=== PATIENT | male | born 1970 | race Caucasian/White ===

== ENCOUNTER 2020-07-07 15:24 | Inpatient (IN) | payer OTHER ==
[2020-07-07] MEDS ORDERED: LIDO 2%/EPI 1:200000 PRESRVFRE (20 ML SDVIAL) ONE (15:50)
[2020-07-07] MEDS ORDERED: LIDOCAINE 1%/EPI 1:100000 (20 ML MULTI DOSE VIAL) IJ ONE (15:52)
--- NOTE | 2020-07-07 16:22 | PDOC ---
History of Present Illness - General Chief Complaint: Abscess Boil Stated Complaint: ABSCESS Time Seen by Provider: 07/07/20 15:27 - History of Present Illness Initial Comments: 50 YOM h/o HIV presents for abscess on right buttock. Patient reports that since 4 days prior to arrival he has had a lesion in his right buttock which grown in siize. The lesion causes him pain when he sits but is not painful otherwise. He reports the lesion began to drain fluid this morning and he decided to visit the ER for drainage. He also reports that 4-5 months ago he was diagnosed with HIV. He is uncertain of his CD4 count or viral load and is not currently taking any medications to treat his HIV. He denies fevers, chills, N/V/D, chest pain, or shortness of breath. Past History - Medical History Allergies/Adverse Reactions: Allergies Allergy/AdvReac Type Severity Reaction Status Date / Time No Known Allergies Allergy Verified 07/07/20 15:25 Home Medications: Ambulatory Orders NK [No Known Home Medication] 07/07/20 CVA: No COPD: No - Psycho-Social/Smoking History Smoking History: Never smoked - Substance Abuse Hx (Audit-C & DAST Scrn) How often the patient has a drink containing alcohol: Never Score: In Men: 4 or > Positive; In Women: 3 or > Positive: 0 Screen Result (Pos requires Nsg. Audit-10AR): Negative In the last yr the pt used illegal drug/Rx for NonMed reason: No Score: Yes response is considered Positive: 0 Screen Result (Positive result requires Nsg. DAST-10): Negative Review of Systems - Review of Systems Constitutional: Yes: See HPI HEENTM: Yes: See HPI Respiratory: Yes: See HPI Cardiac (ROS): Yes: See HPI ABD/GI: Yes: See HPI : Yes: See HPI Musculoskeletal: Yes: See HPI Integumentary: Yes: See HPI Neurological: Yes: See HPI Endocrine: Yes: See HPI Hematologic/Lymphatic: Yes: See HPI *Physical Exam - Vital Signs Last Vital Signs Temp Pulse Resp BP Pulse Ox 99.2 F 123 H 17 156/107 H 100 07/07/20 15:25 07/07/20 15:25 07/07/20 15:25 07/07/20 15:25 07/07/20 15:25 - Physical Exam General Appearance: Yes: Nourished, Appropriately Dressed HEENT: positive: EOMI, JOSE, Normal ENT Inspection, Normal Voice Neck: positive: Trachea midline, Normal Thyroid Respiratory/Chest: positive: Lungs Clear, Normal Breath Sounds Cardiovascular: positive: Regular Rhythm, Regular Rate, S1, S2, Tachycardia Gastrointestinal/Abdominal: positive: Flat, Soft Rectal Exam: positive: other (patient has 3-4 CM indurated mass with central fluctuance and ring of surrounding warmth and erythema which measure to 11x12 cm. Rectal exam reveal no induration or tracking of lesion into gluteal cleft or anus/rectum. ) ED Treatment Course - LABORATORY CBC & Chemistry Diagram: 07/07/20 16:44 07/07/20 15:57 - Medications Given in the ED: ED Medications Discontinued Medications Generic Name Dose Route Start Last Admin Trade Name Freq PRN Reason Stop Dose Admin Lidocaine/Epinephrine 10 ml 07/07/20 15:52 07/07/20 16:01 Xylocaine 1%-Epi 1:100,000 IJ 07/07/20 15:53 10 ml ONCE ONE Administration Medical Decision Making - Medical Decision Making 52 YOM h/o HIV not on antiretroviral medication presents with 4cm indurated abscess with fluctuance -Pt is tachycardic to 120s and rectal temp of 101.1 -Will do septic work up, I and D of abscess and admit -Pt given IV vancomycin and zosyn and Tylenol -I and D performed, wound packed and dressed -Pt admitted to med surg Discharge - Discharge Information Problems reviewed: Yes Clinical Impression/Diagnosis: Abscess, HIV disease Condition: Stable - Admission Yes - Follow up/Referral - Patient Discharge Instructions - Post Discharge Activity
[2020-07-07] MEDS ORDERED: ACETAMINOPHEN 1000 MG/100 ML VIAL (NON FORMULARY) IVPB ONE (16:27)
[2020-07-07] MEDS ORDERED: ACETAMINOPHEN INJECTION 100 ML IVPB ONE (16:45)
[2020-07-07 16:52] LABS: BASO % 0.5 % (0-2.0); EOS % 10.6 % (0-4.5); HEMATOCRIT 42.6 % (35.4-49); HEMOGLOBIN 14.3 GM/dl (11.7-16.9); MCH 30.5 pg (25.7-33.7); MCHC 33.6 g/dl (32.0-35.9); MEAN CELL VOLUME 90.6 fl (80-96); MEAN PLT VOLUME 6.9 fl (7.5-11.1); MONO % 6.9 % (3.8-10.2); PLATELET COUNT 277 K/MM3 (134-434); RDW 12.2 % (11.9-15.9); WHITE BLOOD COUNT 9.6 K/mm3 (4.0-10.8)
[2020-07-07 17:10] LABS: ALBUMIN 4.2 g/dl (3.4-5.0); BILIRUBIN,TOTAL 0.7 mg/dl (0.2-1); CALCIUM 8.6 mg/dl (8.5-10); CREATININE 0.9 mg/dl (0.55-1.3); POTASSIUM 3.6 mmol/L (3.5-5.1); TOT PROT 7.8 g/dl (6.4-8.2)
[2020-07-07] MEDS ORDERED: VANCOMYCIN 1 GM in D5W (PRE-DOCKED) 1,000 MG/250 ML IVPB ONE (17:24)
[2020-07-07] MEDS ORDERED: PIPERACILLIN/TAZOB 3.375 GM 3.375 GM in DEXTROSE 5%-WATER - 50 ML IVPB ONE (17:24)
[2020-07-07 17:27] LABS: ACTIVATED PTT 28.8 SECONDS (25.2-36.5); PROTHROMBIN TIME (PATIENT) 14.3 SEC (10.2-13.0)
[2020-07-07 17:28] LABS: INR 1.32 (0.82-1.09)
[2020-07-07] MEDS ORDERED: PIPERACILLIN/TAZOBACTAM 3.375 GM VIAL IVPB ONE (17:55)
--- NOTE | 2020-07-07 18:18 | PDOC ---
Attending Attestation - Resident Resident Name: Matheus Mckenzie - ED Attending Attestation I have performed the following: I have examined & evaluated the patient, The case was reviewed & discussed with the resident, I agree w/resident's findings & plan, Exceptions are as noted - HPI HPI: 07/07/20 18:15 50 years old with past medical history significant for HIV diagnosed approximately 1-1/2 years ago but patient has not started treatment. Presents to the ED with abscess to right buttock for several days. Denies fever chills chest pain shortness of breath nausea vomiting diarrhea. - Physicial Exam PE: 07/07/20 18:33 Vitals: Triage Vital signs reviewed General Appearance: No acute distress, well nourished well developed, Head: Atraumatic, Cardiac: Regular rate and rhythym, no murmurs, no rubs, no gallops, Lungs: Clear to auscultation bilateral, good air movement bilaterally, Abdomen: Soft, non distended, normal bowel sounds, non tender to palpation Extremities: Full range of motion to all extremities, no cyanosis, clubbing, or edema Skin: Warm and dry, no rashes or lesions, no rash, no petechiae Neuro: AOX3; cranial Nerves 2-12 grossly intact, strength intact to all extremities, sensation intact to all extremities, gait normal Psych: Normal mood, normal affect - Medical Decision Making 07/07/20 19:28 50 years old with untreated HIV. Unknown viral status Presents with buttock abscess; incised and drained with surrounding cellulitis. Packed. Recomend packing change in 2 days Given fever of 101 tachycardia untreated HIV and cellulitis decision made to admit for broad-spectrum antibiotics infectious disease consultation We will obtain CAT scan to rule out deep infection although low suspicion given no rectal tenderness or fluctuance on examination Discharge - Discharge Information Problems reviewed: Yes Clinical Impression/Diagnosis: Abscess, HIV disease Condition: Stable - Follow up/Referral - Patient Discharge Instructions - Post Discharge Activity Procedure Note Procedure: Patient verbally consented for incision and drainage of buttock abscess Using universal sterile precautions right buttock abscess prepped and draped anesthetized with 2% lidocaine with epi. 1.5 cm decision made loculations broken up using Consuelo clamp irrigated thoroughly with 200 cc normal saline approximately 10 cc pus expressed Packed with sterile packing Patient tolerated procedure well
[2020-07-07] MEDS ORDERED: VANCOMYCIN 1,000 MG VIAL (RESTRICTED TO ID ONLY) ONE (18:21)
[2020-07-07 20:15] VITALS: BMI 34.6
--- NOTE | 2020-07-07 20:22 | HP ---
CHIEF COMPLAINT: Buttock Abscess PCP: HISTORY OF PRESENT ILLNESS: This is a 50 y/o male with a significant medical history of HIV (no HAART compliant) unknown CD4 count and Viral load, HTN (non-complaint). Who presents to the ED with pain, swelling and drainage from a right buttock abscess. Patient reports having a small pimple to his right buttock 3-4 days ago, which he placed warm compresses on to bring to a head. Today he had increased pain when sitting and felt fluid draining from it. Patient reports feeling warm and having chills today. Patient denies cough, SOB, ACOSTA, dizziness, CP, palpitations, AP, N/V/D, constipation. Patient denies sick contacts or recent travel. Patient reports being in a monogamous relationship with his partner at present. He denies penile discharge or STIs. Patient denies sick contacts or recent travel. ER course was notable for: (1) Pelvis CT- findings consistent with diffuse cellulitis, with fluid collection at the right posteriomedial subcutaneous fat of the lower pelvis, at which abscess formation cannot be excluded. 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, Practice Architect Facility Allergies No Known Allergies Allergy (Verified 07/07/20 15:25) HOME MEDICATIONS: Home Medications Medication Instructions Recorded NK [No Known Home Medication] 07/07/20 REVIEW OF SYSTEMS CONSTITUTIONAL: fever, chills Absent: diaphoresis, generalized weakness, malaise, loss of appetite, weight change HEENT: Absent: rhinorrhea, nasal congestion, throat pain, throat swelling, difficulty swallowing, mouth swelling, ear pain, eye pain, visual changes CARDIOVASCULAR: Absent: chest pain, syncope, palpitations, irregular heart rate, lightheadedness, peripheral edema RESPIRATORY: Absent: cough, shortness of breath, dyspnea with exertion, orthopnea, wheezing, stridor, hemoptysis GASTROINTESTINAL: Absent: abdominal pain, abdominal distension, nausea, vomiting, diarrhea, constipation, melena, hematochezia GENITOURINARY: Absent: dysuria, frequency, urgency, hesitancy, hematuria, flank pain, genital pain MUSCULOSKELETAL: Absent: myalgia, arthralgia, joint swelling, back pain, neck pain SKIN: Right Buttock Abscess, erythema Absent: rash, itching, pallor HEMATOLOGIC/IMMUNOLOGIC: Absent: easy bleeding, easy bruising, lymphadenopathy, frequent infections ENDOCRINE: Absent: unexplained weight gain, unexplained weight loss, heat intolerance, cold intolerance NEUROLOGIC: Absent: headache, focal weakness or paresthesias, dizziness, unsteady gait, seizure, mental status changes, bladder or bowel incontinence PSYCHIATRIC: Absent: anxiety, depression, suicidal or homicidal ideation, hallucinations. PHYSICAL EXAMINATION Vital Signs - 24 hr 07/07/20 07/07/20 07/07/20 15:25 16:25 19:04 Temperature 99.2 F 101.2 F H 99.3 F Pulse Rate 123 H Pulse Rate [ 122 H Left] Respiratory 17 18 Rate Blood Pressure 156/107 H Blood Pressure 155/110 H [Right Arm] O2 Sat by Pulse 100 97 Oximetry (%) 07/07/20 19:56 Temperature 99.2 F Pulse Rate 117 H Pulse Rate [ Left] Respiratory 18 Rate Blood Pressure 143/97 Blood Pressure [Right Arm] O2 Sat by Pulse 99 Oximetry (%) GENERAL: Awake, alert, and fully oriented, in no acute distress. HEAD: Normal with no signs of trauma. EYES: Pupils equal, round and reactive to light, extraocular movements intact, sclera anicteric, conjunctiva clear. No lid lag. EARS, NOSE, THROAT: Ears normal, nares patent, oropharynx clear without exudates. Moist mucous membranes. NECK: Normal range of motion, supple without lymphadenopathy, JVD, or masses. LUNGS: Breath sounds equal, clear to auscultation bilaterally. No wheezes, and no crackles. No accessory muscle use. HEART: Regular rate and rhythm, normal S1 and S2 without murmur, rub or gallop. ABDOMEN: Soft, nontender, not distended, normoactive bowel sounds, no guarding, no rebound, no masses. No hepatomegaly or splenomegaly. BUTTOCKS: Right buttock induration with fluctuance, erythema, warmth, dressing with packing, TTP MUSCULOSKELETAL: Normal range of motion at all joints. No bony deformities or tenderness. No CVA tenderness. UPPER EXTREMITIES: 2+ pulses, warm, well-perfused. No cyanosis. No clubbing. No peripheral edema. LOWER EXTREMITIES: 2+ pulses, warm, well-perfused. No calf tenderness. No peripheral edema. NEUROLOGICAL: Cranial nerves II-XII intact. Normal speech. Normal gait. PSYCHIATRIC: Cooperative. Good eye contact. Appropriate mood and affect. SKIN: Erythema, warmth, induration to right medial buttocks. Warm, dry, normal turgor, no rashes noted, normal capillary refill. Laboratory Results - last 24 hr 07/07/20 07/07/20 07/07/20 15:57 16:44 16:44 WBC 9.6 RBC 4.70 Hgb 14.3 Hct 42.6 MCV 90.6 MCH 30.5 MCHC 33.6 RDW 12.2 Plt Count 277 MPV 6.9 L Absolute Neuts (auto) 5.8 Neutrophils % 60.0 Lymphocytes % 22.0 Monocytes % 6.9 Eosinophils % 10.6 H Basophils % 0.5 PT with INR 14.3 H INR 1.32 H PTT (Actin FS) 28.8 Sodium 134 L Potassium 3.6 Chloride 103 Carbon Dioxide 24 Anion Gap 7 L BUN 13.0 Creatinine 0.9 Est GFR (CKD-EPI)AfAm 113.41 Est GFR (CKD-EPI)NonAf 97.85 Random Glucose 98 Lactic Acid Calcium 8.6 Total Bilirubin 0.7 AST 19 ALT 19 Alkaline Phosphatase 87 Total Protein 7.8 Albumin 4.2 Urine Color Urine Appearance Urine pH Urine Protein Urine Glucose (UA) Urine Ketones Urine Blood Urine Nitrite Urine Bilirubin Urine Urobilinogen Ur Leukocyte Esterase 07/07/20 07/07/20 16:44 16:54 WBC RBC Hgb Hct MCV MCH MCHC RDW Plt Count MPV Absolute Neuts (auto) Neutrophils % Lymphocytes % Monocytes % Eosinophils % Basophils % PT with INR INR PTT (Actin FS) Sodium Potassium Chloride Carbon Dioxide Anion Gap BUN Creatinine Est GFR (CKD-EPI)AfAm Est GFR (CKD-EPI)NonAf Random Glucose Lactic Acid 1.5 Calcium Total Bilirubin AST ALT Alkaline Phosphatase Total Protein Albumin Urine Color Yellow Urine Appearance Clear Urine pH 5.5 Urine Protein Negative Urine Glucose (UA) Negative Urine Ketones Trace Urine Blood Negative Urine Nitrite Negative Urine Bilirubin Negative Urine Urobilinogen 0.2 Ur Leukocyte Esterase Negative ASSESSMENT/PLAN: This is a 50 y/o male with a PMHx of HIV (non HAART complaint), HTN (non- complaint). Admitted to Telemetry for Uncontrolled HTN, Tachycardia, Sepsis, Cellulitis for further evaluation of their emergent condition. Plan: See Problem List FEN PO Fluids as tolerated Replete lytes prn Low Na Diet DVT ppx OOB SCDs Lovenox SQ Dispo: Requires Inpatient Care Family Medical History Family History: As Documented Family Hx Coronary Artery Disease: Mother (s/p Stents) Family Hx Respiratory Disorders: Father (Emphysema- ) Problem List - Problem (1) Sepsis Assessment/Plan: Likely secondary to Gluteal Abscess Pelvis CT image, report reviewed- findings consistent with diffuse cellulitis, with fluid collection at the right posteriomedial subcutaneous fat of the lower pelvis, at which abscess formation cannot be excluded. Blood Cultures-pending Sepsis Criteria Met: T 101.2, P 123 Vancomycin, Zosyn given in ED for broad spectrum coverage, will continue Appreciate ID consult Tylenol prn Monitor vitals Monitor CBC, CMP Code(s): A41.9 - SEPSIS, UNSPECIFIED ORGANISM (2) Abscess Assessment/Plan: See above Code(s): L02.91 - CUTANEOUS ABSCESS, UNSPECIFIED (3) Uncontrolled hypertension Assessment/Plan: Likely secondary to Non-Compliance Patient reports not taking his HCTZ dosage unknown for several yrs Appreciate Cardiology consult Will initiate Amlodipine Monitor BP Renal US Monitor CMP Code(s): I10 - ESSENTIAL (PRIMARY) HYPERTENSION (4) Tachycardia Assessment/Plan: Likely due to Sepsis Continue cardiac monitoring Appreciate Cardiology consult Serial Enzymes EKG-reviewed Code(s): R00.0 - TACHYCARDIA, UNSPECIFIED (5) HIV disease Assessment/Plan: Not on HAART Therapy secondary to non-compliance Patient has not been in treatment since diagnosis 1.5 yrs ago Appreciate ID consult CD3/4/8-pending Monitor vitals Code(s): B20 - HUMAN IMMUNODEFICIENCY VIRUS [HIV] DISEASE (6) Encounter for screening laboratory testing for COVID-19 virus Assessment/Plan: Low Risk COVID PCR-pending Isolation Precautions Code(s): Z11.59 - ENCOUNTER FOR SCREENING FOR OTHER VIRAL DISEASES Visit type - Emergency Visit Emergency Visit: Yes ED Registration Date: 07/07/20 Care time: The patient presented to the Emergency Department on the above date and was hospitalized for further evaluation of their emergent condition. - New Patient This patient is new to me today: Yes Date on this admission: 07/07/20 - Critical Care Critical Care patient: No
[2020-07-07] MEDS ORDERED: ACETAMINOPHEN 325 MG TABLET (FP) PO PRN (23:00)
[2020-07-08] MEDS ORDERED: DEXTROSE 5%-WATER - 50 ML IVPB ONE ×3 (01:33→17:25)
[2020-07-08] MEDS ORDERED: PIPERACILLIN/TAZOBACTAM 3.375 GM VIAL IVPB ONE ×3 (01:33→17:25)
[2020-07-08] MEDS: PIPERACILLIN/TAZOB 3.375 GM 3.375 GM in DEXTROSE 5%-WATER - 50 ML IVPB SCH ×3 (01:39→17:40)
[2020-07-08 02:37] LABS: COCAINE, UR NEGATIVE ng/ml (CUTOFF=300); METHADONE, UR NEGATIVE ng/ml (CUTOFF=300); OPIATES, URI NEGATIVE ng/ml (CUTOFF=300); PHENCYCLIDINE,URINE NEGATIVE ng/ml (CUTOFF=25); URINE AMPHETAMINES NEGATIVE ng/ml (CUTOFF=500); URINE BARBITURATES NEGATIVE ng/ml (CUTOFF=200); URINE BENZODIAZEPINES NEGATIVE ng/ml (CUTOFF=200)
[2020-07-08 05:31] LABS: OSMOLALITY,SERUM 294 mosm/kg (278-305)
--- NOTE | 2020-07-08 07:54 | CON.CARD ---
Consult Consult Specialty:: cardio - History of Present Illness Chief Complaint: buttock abscess History of Present Illness: 50 M here with R buttock abscess +HIV, not on treatment sec to non-adherence known h/o HTN, not taking rx'd meds (HCTZ) bp initially 150s/100s now controlled was nervous in ER thinks this may have raised his bp felt head pressure when first dx'd hi bp. never feels it so stopped hctz, doesn't check bp denies cp, sob, presyncope labs unremarkable - Smoking History Smoking history: Never smoked Have you smoked in the past 12 months: Yes Aproximately how many cigarettes per day: 15 Home Medications - Allergies Allergies/Adverse Reactions: Allergies Allergy/AdvReac Type Severity Reaction Status Date / Time No Known Allergies Allergy Verified 07/07/20 15:25 - Home Medications Home Medications: Ambulatory Orders NK [No Known Home Medication] 07/07/20 Family Medical History Family History: Denies Family Hx Coronary Artery Disease: Mother (s/p Stents) Family Hx Respiratory Disorders: Father (Emphysema- ) Review of Systems - Review of Systems Constitutional: denies: Chills, Fever Eyes: denies: Eye Pain HENT: denies: Nasal Congestion Neck: denies: Stiffness Cardiovascular: denies: Palpitations Respiratory: denies: Orthopnea, PND Gastrointestinal: denies: Diarrhea, Rectal Bleeding Genitourinary: denies: Burning, Hematuria Musculoskeletal: denies: Muscle Pain Integumentary: denies: Rash Neurological: denies: Numbness, Seizure, Syncope Endocrine: denies: Excessive Sweating Hematology/Lymphatic: denies: Excessive Bleeding Vital Signs: Vital Signs Temperature 98.5 F 07/08/20 04:00 Pulse Rate 88 07/08/20 04:00 Respiratory Rate 18 07/08/20 04:00 Blood Pressure 133/77 07/08/20 04:00 O2 Sat by Pulse Oximetry (%) 99 07/08/20 04:00 Constitutional: Yes: Well Nourished, No Distress Eyes: No: Sclera Icterus HENT: No: Nasal Congestion Neck: No: Decreased ROM Respiratory: Yes: CTA Bilaterally. No: Accessory Muscle Use Gastrointestinal: Yes: Normal Bowel Sounds. No: Distention, Hepatomegaly, Palpable Mass, Tenderness Cardiovascular: Yes: Regular Rate and Rhythm JVD: No Carotid Bruit: No PMI: Non-Displaced Heart Sounds: Yes: S1, S2. No: Gallop Murmur: No: Systolic Murmur, Diastolic Murmur Musculoskeletal: Yes: Other (No kyphosis) Extremities: No: Cool, Cyanosis Edema: No Peripheral Pulses: 2+ Left Carotid, 2+ Right Carotid, 2+ Left Doralis Pedis, 2+ Right Dorsalis Pedis Integumentary: No: Jaundice Neurological: Yes: Alert, Oriented (x3) Psychiatric: No: Agitated - Other Data Labs, Other Data: CBC, BMP 07/07/20 16:44 07/07/20 15:57 INR, PTT INR 1.32 (0.82-1.09) H 07/07/20 16:44 Troponin, BNP 07/08/20 00:00 Troponin I < 0.02 Troponin, BNP 07/08/20 00:00 Troponin I < 0.02 Assessment/Plan CXR: clear lungs/pleura ECG: sinus tach, no ST-T abn tele: sinus with sinus tach gluteal abscess: -per hospitalist, ID HTN: -elevated initially, came down on its own -hold meds for now while observe bp trend, in light of active infection sinus tach: -sec to infection vs anxiety -no tx or further w/u necessary D/C TELEMETRY
[2020-07-08 08:30] LABS: BASO % 0.2 % (0-2.0); EOS % 19.1 % (0-4.5); HEMATOCRIT 39.4 % (35.4-49); HEMOGLOBIN 13.3 GM/dl (11.7-16.9); LYMPH % 24.4 % (8-40); MCH 30.4 pg (25.7-33.7); MCHC 33.7 g/dl (32.0-35.9); MEAN CELL VOLUME 90.2 fl (80-96); MEAN PLT VOLUME 7.2 fl (7.5-11.1); MONO % 7.4 % (3.8-10.2); NEUT % 48.9 % (42.8-82.8); PLATELET COUNT 246 K/MM3 (134-434); RBC 4.37 M/mm3 (4.00-5.60); RDW 11.8 % (11.9-15.9); WHITE BLOOD COUNT 5.5 K/mm3 (4.0-10.8)
[2020-07-08 09:19] LABS: ALBUMIN 3.7 g/dl (3.4-5.0); BILIRUBIN,TOTAL 0.9 mg/dl (0.2-1); CALCIUM 8.6 mg/dl (8.5-10); CREATININE 0.9 mg/dl (0.55-1.3); MAGNESIUM 2.2 mg/dL (1.8-2.4); POTASSIUM 3.9 mmol/L (3.5-5.1)
[2020-07-08] MEDS: ENOXAPARIN NA (PORCINE) 40 MG/0.4 ML DISP.SYRIN SQ SCH (09:39)
[2020-07-08] MEDS ORDERED: VANCOMYCIN 1,250 MG in DEXTROSE 5%-WATER - 250 ML IVPB SCH (10:00)
[2020-07-08 10:18] LABS: ERYTHROCYTE SEDIMENTATION RATE 18 mm/hr (0-20)
[2020-07-08] MEDS: VANCOMYCIN 1,250 MG in DEXTROSE 5%-WATER - 250 ML IVPB SCH ×2 (13:14→21:14)
--- NOTE | 2020-07-08 15:40 | PN ---
Progress Note, Physician Chief Complaint: right glutteal abscess History of Present Illness: 24HR events: -started on vanco/zosyn for right glut abscess after I & D in ED -tachycardia improving HPI: 50 y/o male with a significant medical history of HIV (no HAART compliant) unknown CD4 count and Viral load, HTN (non-complaint). Who presents to the ED with pain, swelling and drainage from a right buttock abscess. Patient reports having a small pimple to his right buttock 3-4 days ago, which he placed warm compresses on to bring to a head. Today he had increased pain when sitting and felt fluid draining from it. Patient reports feeling warm and having chills today. Patient denies cough, SOB, ACOSTA, dizziness, CP, palpitations, AP, N/V/D, constipation. Patient denies sick contacts or recent travel. Patient reports being in a monogamous relationship with his partner at present. He denies penile discharge or STIs. Patient denies sick contacts or recent travel. ER course was notable for: (1) Pelvis CT- findings consistent with diffuse cellulitis, with fluid collection at the right posteriomedial subcutaneous fat of the lower pelvis, at which abscess formation cannot be excluded. (2) Vancomycin, Zosyn given (3) T Max 101.2 (4) BP 156/107~ 155/110 (5) HR- 123~117 - Current Medication List Current Medications: Active Medications Acetaminophen (Tylenol -) 650 mg PO Q6H PRN PRN Reason: FEVER Enoxaparin Sodium (Lovenox -) 40 mg SQ DAILY CINDY Last Admin: 07/08/20 09:39 Dose: Not Given Documented by: Piperacillin Sod/Tazobactam (Sod 3.375 gm/ Dextrose) 50 mls @ 100 mls/hr IVPB Q8H-IV CINDY; Protocol Vancomycin HCl 1,250 mg/ (Dextrose) 250 mls @ 166.667 mls/hr IVPB BID CINDY; Protocol Last Admin: 07/08/20 13:14 Dose: 166.667 mls/hr Documented by: - Objective Vital Signs: Vital Signs Temperature 98.2 F 07/08/20 14:00 Pulse Rate 93 H 07/08/20 14:00 Respiratory Rate 18 07/08/20 14:00 Blood Pressure 150/94 07/08/20 14:00 O2 Sat by Pulse Oximetry (%) 97 07/08/20 14:00 Constitutional: Yes: Well Nourished, No Distress, Calm Eyes: Yes: Conjunctiva Clear HENT: Yes: Atraumatic, Normocephalic Neck: Yes: Supple, Trachea Midline Cardiovascular: Yes: Regular Rate and Rhythm Respiratory: Yes: Regular, CTA Bilaterally Gastrointestinal: Yes: Normal Bowel Sounds, Soft, Abdomen, Obese ...Rectal Exam: Yes: Other (right glut w/ open wound which is packed, + circumf erential erythema, scant blood drainage) Musculoskeletal: Yes: WNL Extremities: Yes: WNL Edema: No Peripheral Pulses WNL: Yes Peripheral Pulses: Left Radial: 2+, Right Radial: 2+, Left Doralis Pedis: 2+, Right Dorsalis Pedis: 2+ Integumentary: Yes: WNL Wound/Incision: Yes: Draining, Reddened, Unapproximated Neurological: Yes: Alert, Oriented, Cran Nerves II-XII Intact ...Motor Strength: WNL Psychiatric: Yes: Alert Labs: CBC, BMP 07/08/20 08:17 07/08/20 06:00 INR, PTT INR 1.32 (0.82-1.09) H 07/07/20 16:44 Problem List - Problems (1) Prophylactic measure Assessment/Plan: lovenox SC daily OOB to chair Code(s): Z29.9 - ENCOUNTER FOR PROPHYLACTIC MEASURES, UNSPECIFIED (2) Abscess Assessment/Plan: c/w vanco/Zosyn ID consulted Trend temp curve Tylenol PRN pain WBC count normal Twice daily wound care wound culture sent today (07/08)- follow up final report blood culture pending Code(s): L02.91 - CUTANEOUS ABSCESS, UNSPECIFIED (3) Encounter for screening laboratory testing for COVID-19 virus Assessment/Plan: COVID screen pending- isolation/droplet precaution until result finalized Code(s): Z11.59 - ENCOUNTER FOR SCREENING FOR OTHER VIRAL DISEASES (4) HIV disease Assessment/Plan: CD 4 count pending pt amenable to establishing care at [facility], he would like to start treatment for HIV disease - Code(s): B20 - HUMAN IMMUNODEFICIENCY VIRUS [HIV] DISEASE (5) Uncontrolled hypertension Assessment/Plan: BP elevated in ED and during hospital stay -start hyzaar 50/12.5mg once daily cardiac diet d/c telemetry cards evaluated pt and signed off Code(s): I10 - ESSENTIAL (PRIMARY) HYPERTENSION Impression/Plan Impression/Plan: DISPO: will continue IV abx for another 24hrs, if he remains hemodynamically stable could be transitioned to oral abx and discharged Code status: Full code Visit type - Emergency Visit Emergency Visit: Yes ED Registration Date: 07/07/20 Care time: The patient presented to the Emergency Department on the above date and was hospitalized for further evaluation of their emergent condition. - New Patient This patient is new to me today: Yes Date on this admission: 07/08/20 - Critical Care Critical Care patient: No - Discharge Referral Referred to [facility] Med P.C.: Yes
[2020-07-08] MEDS ORDERED: LOSARTAN 50MG/HCTZ 12.5MG 1 TAB (FP) PO SCH (15:45)
[2020-07-09] MEDS ORDERED: PIPERACILLIN/TAZOBACTAM 3.375 GM VIAL IVPB ONE ×3 (01:19→18:13)
[2020-07-09] MEDS ORDERED: DEXTROSE 5%-WATER - 50 ML IVPB ONE ×3 (01:19→18:13)
[2020-07-09] MEDS: PIPERACILLIN/TAZOB 3.375 GM 3.375 GM in DEXTROSE 5%-WATER - 50 ML IVPB SCH ×3 (01:50→18:26)
[2020-07-09 08:48] LABS: ALBUMIN 3.8 g/dl (3.4-5.0); BILIRUBIN,TOTAL 0.7 mg/dl (0.2-1); CALCIUM 8.8 mg/dl (8.5-10); CREATININE 0.8 mg/dl (0.55-1.3); HEMATOCRIT 40.6 % (35.4-49); HEMOGLOBIN 13.5 GM/dl (11.7-16.9); MAGNESIUM 2.1 mg/dL (1.8-2.4); MCHC 33.3 g/dl (32.0-35.9); MEAN PLT VOLUME 6.7 fl (7.5-11.1); PLATELET COUNT 257 K/MM3 (134-434); POTASSIUM 4.1 mmol/L (3.5-5.1); RBC 4.51 M/mm3 (4.00-5.60); RDW 11.9 % (11.9-15.9); TOT PROT 7.2 g/dl (6.4-8.2); WHITE BLOOD COUNT 6.6 K/mm3 (4.0-10.8)
[2020-07-09] MEDS: ENOXAPARIN NA (PORCINE) 40 MG/0.4 ML DISP.SYRIN SQ SCH (09:31)
[2020-07-09] MEDS: VANCOMYCIN 1,250 MG in DEXTROSE 5%-WATER - 250 ML IVPB SCH ×2 (09:31→21:25)
--- NOTE | 2020-07-09 09:37 | PN ---
Progress Note (short form) - Note Progress Note: ID CONSULT DICTATED SOFT TISSUE ABSCESS, BUTTOCK FEVER R/O SEPSIS SECONDARY TO SOFT TISSUE INFECTION HIV+ AIDS AWAIT C/S SURGICAL EVALUATION STRONGLY ADVISED AT THIS TIME EMPIRIC VANCOMCYIN/ ZOSYN
--- NOTE | 2020-07-09 10:26 | CONS ---
INFECTIOUS DISEASE CONSULTATION DATE OF CONSULTATION: DATE OF DICTATION: 07/09/2020 HISTORY: The patient is a 50-year-old male with a history of HIV positive, not presently on antiretroviral therapy, evaluated for right buttock abscess. He was admitted through the emergency room on July 07, 2020. He had reported developing a pustular lesion on the right buttock approximately 4 days prior to admission. It became progressively more swollen and painful. In addition, he noted some drainage. He presented to the emergency room where he was found to have a right buttock abscess. In the emergency room his temperature was recorded at 101.2. An incision and drainage was performed by the emergency room physician. However, it does not appear that cultures were obtained. He was empirically treated with IV antibiotics. At the present time cultures are pending. He continues to complain of pain in the right buttock; however, it has improved. His temperatures have also improved. A wound culture was subsequently sent by the nurse practitioner on July 08, 2020. Patient complains of pain in the right buttock area. He denies history of serious soft tissue infection requiring hospitalization or history of MRSA. A CAT scan of the area was performed and showed diffuse cellulitis with fluid collections noted at the right posterior medial subcutaneous fat of the lower pelvis. There was no discrete walled off abscess noted at that time. However, followup was recommended. A surgical consult was not requested. PAST MEDICAL HISTORY: Positive for HIV infection. He was diagnosed approximately 1-1/2 years ago. He has not been under the care of a physician. He is unaware of his viral load or CD4 lymphocyte count. He is not on antiretroviral therapy. Past medical history also positive for hypertension. ALLERGIES: No known allergies. MEDICATIONS AT THE PRESENT TIME: Include Zosyn, vancomycin, Lovenox, Tylenol. SOCIAL HISTORY: He resides in the community. He is employed. He is a nonsmoker, nondrinker. SYSTEMS REVIEW: Neurologic: No loss of consciousness, seizure activity or focal weakness. Cardiac: Negative chest pain or palpitations. Respiratory: Negative cough or sputum production. Gastrointestinal: Negative vomiting or diarrhea. Genitourinary: Negative for urinary tract infection. LABORATORY DATA: White count 5.5, neutrophils 48, lymphocytes 24, monocytes 7, eosinophils 19, hematocrit 39.4, platelet count 246. Chemistries: Creatinine 0.8, liver enzymes normal. Urine analysis negative. Toxicology screen negative. CD4 lymphocyte count pending. COVID-19 pending. Cultures are pending. Lab was contacted. It appears that the plates are growing a staph species. Final identification is pending. PHYSICAL EXAMINATION: General: He is awake and alert. He is somewhat anxious. He is pacing in the room. He is in no acute distress. Vital Signs: Temperature 98.2, blood pressure 123/80, pulse 89 regular, respirations 18 per minute. HEENT: Sclerae are anicteric. Heart: Sounds S1, S2. Lungs: Clear. Abdomen: Soft. Skin: Examination of the right buttock there is an area of induration present on the right buttock area approximately 6 cm in diameter with a central pustular lesion. It is tender to touch and erythematous. There is no expressible pus. No crepitus or fluctuance. Extremities: Negative for edema. IMPRESSION: 1. Soft tissue abscess right buttock. 2. Fever, tachycardia, rule out sepsis secondary to skin source. 3. Human immunodeficiency virus positive, rule out acquired immunodeficiency syndrome. Await culture results. Advise formal surgical evaluation at this time. Empiric antibiotic coverage with vancomycin and Zosyn. CD4 lymphocyte count. Outpatient referral for treatment of his HIV disease. Local wound care, warm compresses. Thank you for the kind referral. TOÑO WANG M.D. [id number]
--- NOTE | 2020-07-09 11:42 | EKG ---
Test Reason : Blood Pressure : / mmHG Vent. Rate : 124 BPM Atrial Rate : 124 BPM P-R Int : 146 ms QRS Dur : 080 ms QT Int : 300 ms P-R-T Axes : 055 061 056 degrees QTc Int : 431 ms SINUS TACHYCARDIA OTHERWISE NORMAL ECG NO PREVIOUS ECGS AVAILABLE Confirmed by RADHA RANKIN MD ([id number]) on 07/09/2020 11:41:28 AM Referred By: JUD SANFORD Confirmed By:RADHA RANKIN MD
--- NOTE | 2020-07-09 11:50 | PN ---
Physical Exam: SUBJECTIVE: Patient seen and examined oob. Pacing around room. Lenthy discussion about patient's HIV status. He was diagnosed 1 1/2 years ago, never went back to see a doctor or other provider. Has not had any medical issues until now. Suggested patient discuss with Dr. Gumzan and be followed at [facility] but patient is reluctant, not certain he wants to be treated. His partner is HIV+ (20+ years) but partner does not know of patient's diagnosis and patient does not want him to know at this time. STRICT CONFIDENTIALITY. OBJECTIVE: Vital Signs Period Temp Pulse Resp BP Sys/Pascual Pulse Ox Last 24 Hr 98.2 F-98.6 F 87-93 18-18 123-155/64-94 96-98 GENERAL: The patient is awake, alert, and fully oriented, in no acute distress. HEAD: Normal with no signs of trauma. EYES: PERRL, extraocular movements intact, sclera anicteric, conjunctiva clear. No ptosis. LUNGS: Breath sounds equal, clear to auscultation bilaterally, no wheezes, no crackles, no accessory muscle use. HEART: Regular rate and rhythm, S1, S2 ABDOMEN: Soft, nontender, nondistended RIGHT BUTTOCK: area of induration extending from intergluteal fold laterally about 8cm, central lesion draining pus (dressing saturated) EXTREMITIES: 2+ pulses, warm, well-perfused, no edema. NEUROLOGICAL: Cranial nerves II through XII grossly intact. Normal speech, steady gait Laboratory Results - last 24 hr 07/09/20 07/09/20 07:11 07:11 WBC 6.6 RBC 4.51 Hgb 13.5 Hct 40.6 MCV 90.0 MCH 30.0 MCHC 33.3 RDW 11.9 Plt Count 257 MPV 6.7 L Sodium 136 Potassium 4.1 Chloride 104 Carbon Dioxide 25 Anion Gap 7 L BUN 16.0 Creatinine 0.8 Est GFR (CKD-EPI)AfAm 119.04 Est GFR (CKD-EPI)NonAf 102.71 Random Glucose 90 Calcium 8.8 Magnesium 2.1 Total Bilirubin 0.7 AST 17 ALT 19 Alkaline Phosphatase 68 Total Protein 7.2 Albumin 3.8 Active Medications Generic Name Dose Route Start Last Admin Trade Name Freq PRN Reason Stop Dose Admin Acetaminophen 650 mg 07/07/20 23:00 Tylenol - PO Q6H PRN FEVER Enoxaparin Sodium 40 mg 07/08/20 10:00 07/09/20 09:31 Lovenox - SQ Not Given DAILY CINDY Piperacillin Sod/Tazobactam 50 mls @ 100 mls/hr 07/08/20 18:00 07/09/20 09:26 Sod 3.375 gm/ Dextrose IVPB 100 mls/hr Q8H-IV CINDY Administration Protocol Vancomycin HCl 1,250 mg/ 250 mls @ 166.667 mls/hr 07/08/20 11:30 07/09/20 09:31 Dextrose IVPB 166.667 mls/hr BID CINDY Administration Protocol ASSESSMENT/PLAN 50 year-old male with a PMH significant for HTN and HIV+, admitted for right buttock abscess. Sepsis secondary to right buttock abscess --T 101.2, p123 present on admission; lactic acid was not drawn --had initial I&D in ED, wound is draining pus --surgical consult requested --continue Lata and Akira, ID following Hypertension --BP elevated on admission, now normotensive --not on anti-hypertensives HIV+ --diagnosed 1 1/2 years ago, has not sought treatment, unaware of his viral load or CD4 lymphocyte count --labs pending COVID --07/07 swab pending FEN Fluids: PO intake adequate Electrolytes: replete as indicated Nutrition: regular diet DVT prophylaxis: subq lovenox Dispo: continues to require inpatient care. Full code. Visit type - Emergency Visit Emergency Visit: Yes ED Registration Date: 07/07/20 Care time: The patient presented to the Emergency Department on the above date and was hospitalized for further evaluation of their emergent condition. - New Patient This patient is new to me today: Yes Date on this admission: 07/09/20 - Critical Care Critical Care patient: No
--- NOTE | 2020-07-09 13:23 | CONSULT ---
- Consultation REQUESTING PROVIDER: CONSULT REQUEST: We have been asked to surgically evaluate this patient for buttock abscess Hospitalist:Lori Arias HISTORY OF PRESENT ILLNESS: 50 YOM h/o HIV presents for abscess on right buttock. Patient reports that since 4 days prior to arrival he has had a lesion in his right buttock which grown in size. The lesion causes him pain when he sits but is not painful otherwise. He reports the lesion began to drain fluid after he tried squeezing it on Thursday morning and he decided to come to the ER for evaluation. He was diagnosed with HIV 1.5 years ago but has not had any follow up. He is uncertain of his CD4 count or viral load and is not currently taking any medications to treat his HIV. He denies fevers, chills, N/V/D, chest pain, or shortness of breath. He is also voiding and having normal BMs. Patient had I&D in ER upon admission. Past History HIV - Medical History Allergies/Adverse Reactions: Allergies Allergy/AdvReac Type Severity Reaction Status Date / Time No Known Allergies Allergy Verified 07/07/20 15:25 Home Medications: Ambulatory Orders NK [No Known Home Medication] 07/07/20 CVA: No COPD: No - Psycho-Social/Smoking History Smoking History: Never smoked - Substance Abuse Hx (Audit-C & DAST Scrn) How often the patient has a drink containing alcohol: Never Score: In Men: 4 or > Positive; In Women: 3 or > Positive: 0 Screen Result (Pos requires Nsg. Audit-10AR): Negative In the last yr the pt used illegal drug/Rx for NonMed reason: No Score: Yes response is considered Positive: 0 Screen Result (Positive result requires Nsg. DAST-10): Negative Review of Systems - Review of Systems Constitutional: Yes: See HPI HEENTM: Yes: See HPI Respiratory: Yes: See HPI Cardiac (ROS): Yes: See HPI ABD/GI: Yes: See HPI : Yes: See HPI Musculoskeletal: Yes: See HPI Integumentary: Yes: See HPI Neurological: Yes: See HPI Endocrine: Yes: See HPI Hematologic/Lymphatic: Yes: See HPI *Physical Exam - Vital Signs Vital Signs Temp 98.5 F 07/09/20 14:00 Pulse 109 H 07/09/20 14:00 Resp 19 07/09/20 14:00 BP 120/83 07/09/20 14:00 Pulse Ox 98 07/09/20 14:00 Intake & Output 07/08/20 07/09/20 07/09/20 23:59 11:59 23:59 Intake Total 950 800 380 Balance 950 800 380 Intake: IVPB 600 100 Oral 350 700 380 Other: Voiding Method Toilet Toilet # Unmeasured Voids Void 1 1 Bowel Movement No - Physical Exam General Appearance: Yes: Nourished, Appropriately Dressed HEENT: PERRL, Normal ENT Inspection, Normal Voice Neck: Trachea midline, Respiratory/Chest: Unlabored resp on RA, no accessory muscle use Gastrointestinal/Abdominal: obese, ND, NT, Soft Skin: Right buttocks @ 3cm area of indurration with central opening @ 0.5cm with scant d/c, probed with minimal undermining @ 0.5cm circumstantially, no deep tunneling or tracking, no foul odor no definitive fluctuance or abscess. previous margins drawn on admission show much improvement of erythema, no tracking erythema. Rectal exam deferred. on visual inspection, no evidence of fistula or communication to rectum, gluteal cleft or anus. ED Treatment Course - LABORATORY CBC & Chemistry Diagram: CBC, BMP 07/09/20 07:11 07/09/20 07:11 Microbiology 07/08/20 12:36 Abscess Gram Stain - Final 07/08/20 12:36 Abscess Wound Culture - Preliminary Staphylococcus Latex Coag Pos 07/07/20 16:54 Urine - Urine Clean Catch Urine Culture - Final NO GROWTH OBTAINED 07/07/20 17:01 Blood - Peripheral Venous Blood Culture - Preliminary NO GROWTH OBTAINED AFTER 24 HOURS, INCUBATION TO CONTINUE FOR 4 DAYS. 07/07/20 16:54 Blood - Peripheral Venous Blood Culture - Preliminary NO GROWTH OBTAINED AFTER 24 HOURS, INCUBATION TO CONTINUE FOR 4 DAYS. - Pelvis CT with contrast - findings consistent with diffuse cellulitis, with f luid collections noted at the right posteriomedial subcutaneous fat of the lower pelvis. NO discrete walled off abscess noted at this time. However short term follow up recommended. Problem List - Problems (1) Abscess Assessment/Plan: 52 YOM h/o HIV not on antiretroviral medication presents with indurration and cellulitis at right buttocks with no evidence of abscess. impoving on IV ABX, Skin open with no evidence of sinus tract or tunneling and no indication for surgical intervention at this eugenio. -Continue IV ABX per ID -Trend daily labs - clean wound daily with NS -offload pressure sensitive areas- frequent OOB and turning -re-consult surgery PRN Evaluation and plan discussed with Dr Villatoro Problems reviewed: Yes Code(s): L02.91 - CUTANEOUS ABSCESS, UNSPECIFIED
[2020-07-09] MEDS ORDERED: PT OWN MED DRAWER 7, Y5N ONE (20:39)
[2020-07-10] MEDS ORDERED: PIPERACILLIN/TAZOBACTAM 3.375 GM VIAL IVPB ONE ×2 (00:38→09:12)
[2020-07-10] MEDS ORDERED: DEXTROSE 5%-WATER - 50 ML IVPB ONE ×2 (00:39→09:13)
[2020-07-10] MEDS: PIPERACILLIN/TAZOB 3.375 GM 3.375 GM in DEXTROSE 5%-WATER - 50 ML IVPB SCH ×2 (01:21→09:25)
[2020-07-10 08:34] LABS: BILIRUBIN,TOTAL 0.7 mg/dl (0.2-1); CALCIUM 8.8 mg/dl (8.5-10); CREATININE 1.1 mg/dl (0.55-1.3); MAGNESIUM 2.1 mg/dL (1.8-2.4); POTASSIUM 4.2 mmol/L (3.5-5.1); TOT PROT 7.3 g/dl (6.4-8.2)
[2020-07-10 08:42] LABS: HEMATOCRIT 39.7 % (35.4-49); HEMOGLOBIN 13.6 GM/dl (11.7-16.9); MCH 30.8 pg (25.7-33.7); MCHC 34.3 g/dl (32.0-35.9); MEAN CELL VOLUME 89.7 fl (80-96); MEAN PLT VOLUME 6.8 fl (7.5-11.1); PLATELET COUNT 278 K/MM3 (134-434); RBC 4.43 M/mm3 (4.00-5.60); RDW 12.2 % (11.9-15.9); WHITE BLOOD COUNT 5.7 K/mm3 (4.0-10.8)
[2020-07-10 09:06] VITALS: TEMP 98.3
[2020-07-10] MEDS: ENOXAPARIN NA (PORCINE) 40 MG/0.4 ML DISP.SYRIN SQ SCH (09:21)
[2020-07-10 09:59] VITALS: BP 126/63; PULSE 89
[2020-07-10] MEDS: VANCOMYCIN 1,250 MG in DEXTROSE 5%-WATER - 250 ML IVPB SCH (10:03)
[2020-07-10 10:17] LABS: PLATELET ESTIMATE ADEQUATE
--- NOTE | 2020-07-10 11:19 | PN ---
Progress Note, Physician History of Present Illness: AWAKE, ALERT NO C/O BUTTOCK PAIN NO FEVER/ CHILLS WOUND C/S STAPH COAG POS - Current Medication List Current Medications: Active Medications Acetaminophen (Tylenol -) 650 mg PO Q6H PRN PRN Reason: FEVER Enoxaparin Sodium (Lovenox -) 40 mg SQ DAILY CINDY Last Admin: 07/10/20 09:21 Dose: Not Given Documented by: Piperacillin Sod/Tazobactam (Sod 3.375 gm/ Dextrose) 50 mls @ 100 mls/hr IVPB Q8H-IV CINDY; Protocol Last Admin: 07/10/20 09:25 Dose: 100 mls/hr Documented by: Vancomycin HCl 1,250 mg/ (Dextrose) 250 mls @ 166.667 mls/hr IVPB Q12H CINDY; Protocol - Objective Vital Signs: Vital Signs Temperature 98.3 F 07/10/20 08:59 Pulse Rate 89 07/10/20 09:59 Respiratory Rate 18 07/10/20 08:59 Blood Pressure 126/63 07/10/20 09:59 O2 Sat by Pulse Oximetry (%) 100 07/10/20 08:59 Constitutional: Yes: No Distress Eyes: Yes: Conjunctiva Clear Cardiovascular: Yes: Regular Rate and Rhythm, S1, S2 Respiratory: Yes: CTA Bilaterally Gastrointestinal: Yes: Normal Bowel Sounds, Soft. No: Tenderness Integumentary: Yes: Other (DECREASED INDURATION R BUTTOCK NO WOUND DRAINAGE) Labs: CBC, BMP 07/10/20 07:20 07/10/20 07:20 INR, PTT INR 1.32 (0.82-1.09) H 07/07/20 16:44 Assessment/Plan SOFT TISSUE ABSCESS R BUTTOCK
--- NOTE | 2020-07-10 11:21 | PN ---
Progress Note, Physician History of Present Illness: AWAKE, ALERT NO C/O BUTTOCK PAIN NO FEVER/ CHILLS WOUND C/S STAPH COAG POS - Current Medication List Current Medications: Active Medications Acetaminophen (Tylenol -) 650 mg PO Q6H PRN PRN Reason: FEVER Enoxaparin Sodium (Lovenox -) 40 mg SQ DAILY CINDY Last Admin: 07/10/20 09:21 Dose: Not Given Documented by: Piperacillin Sod/Tazobactam (Sod 3.375 gm/ Dextrose) 50 mls @ 100 mls/hr IVPB Q8H-IV CINDY; Protocol Last Admin: 07/10/20 09:25 Dose: 100 mls/hr Documented by: Vancomycin HCl 1,250 mg/ (Dextrose) 250 mls @ 166.667 mls/hr IVPB Q12H CINDY; Protocol - Objective Vital Signs: Vital Signs Temperature 98.3 F 07/10/20 08:59 Pulse Rate 89 07/10/20 09:59 Respiratory Rate 18 07/10/20 08:59 Blood Pressure 126/63 07/10/20 09:59 O2 Sat by Pulse Oximetry (%) 100 07/10/20 08:59 Labs: CBC, BMP 07/10/20 07:20 07/10/20 07:20 INR, PTT INR 1.32 (0.82-1.09) H 07/07/20 16:44 Assessment/Plan SOFT TISSUE ABSCESS R BUTTOCK FEVER RESOLVED HIV + STABLE CD4 724 AWAIT FINAL C/S ? PO BACTRIM OUTPATIENT F/U [facility]
[2020-07-10] MEDS ORDERED: SULFAMETHOXAZOLE/TRIMETHOPRIM 800MG/160MG D.S. TABLET PO SCH (11:30)
--- NOTE | 2020-07-10 12:19 | DS ---
Physical Exam: SUBJECTIVE: Patient seen and examined OBJECTIVE: Vital Signs Period Temp Pulse Resp BP Sys/Pascual Pulse Ox Last 24 Hr 97.9 F-99.5 F 85-109 18-19 120-157/63-104 94-100 PHYSICAL EXAM GENERAL: The patient is awake, alert, and fully oriented, in no acute distress. LUNGS: Breath sounds equal, clear to auscultation HEART: Regular rate and rhythm, S1, S2 ABDOMEN: Soft, nontender, nondistended RIGHT BUTTOCK: area of induration continues to extend from intergluteal fold laterally about 8cm, no active drainage but pus on dressing; much less tender EXTREMITIES: 2+ pulses, warm, well-perfused, no edema. NEUROLOGICAL: Cranial nerves II through XII grossly intact. Normal speech, steady gait LABS Laboratory Results - last 24 hr 07/07/20 07/07/20 07/08/20 16:44 17:01 00:00 WBC 9.2 RBC Hgb Hct MCV MCH MCHC RDW Plt Count MPV Absolute Neuts (auto) Absolute Lymphs (auto) 2.2 Neutrophils % Neutrophils % (Manual) Lymphocytes % Lymphocytes % (Manual) Monocytes % (Manual) Eosinophils % (Manual) Lymphocytes 24 Nucleated RBCs TNP Platelet Estimate Sodium Potassium Chloride Carbon Dioxide Anion Gap BUN Creatinine Est GFR (CKD-EPI)AfAm Est GFR (CKD-EPI)NonAf Random Glucose Calcium Magnesium Total Bilirubin AST ALT Alkaline Phosphatase C-Reactive Protein Total Protein Albumin Ur Random Sodium 53 Ur Random Potassium 36.0 Ur Random Chloride 41 L Absolute CD3 Count 1956 % CD3+ Lymphocytes 88.9 H Absolute CD4 [place] 724 % CD4+ Lymphocyte 32.9 CD4/CD8 Ratio 0.60 L % CD8+ Lymphocyte 54.6 H Absolute CD8 Count 1201 H COVID-19 (ERMA) Not detected 07/08/20 07/10/20 07/10/20 09:12 07:20 07:20 WBC 5.7 RBC 4.43 Hgb 13.6 Hct 39.7 MCV 89.7 MCH 30.8 MCHC 34.3 RDW 12.2 Plt Count 278 MPV 6.8 L Absolute Neuts (auto) 2.5 Absolute Lymphs (auto) Neutrophils % No Result Required. Neutrophils % (Manual) 50.0 Lymphocytes % No Result Required. Lymphocytes % (Manual) 27.0 Monocytes % (Manual) 3 L Eosinophils % (Manual) 20.0 H Lymphocytes Nucleated RBCs Platelet Estimate Adequate Sodium 138 Potassium 4.2 Chloride 107 Carbon Dioxide 27 Anion Gap 4 L BUN 18.0 Creatinine 1.1 Est GFR (CKD-EPI)AfAm 88.98 Est GFR (CKD-EPI)NonAf 76.77 Random Glucose 94 Calcium 8.8 Magnesium 2.1 Total Bilirubin 0.7 AST 15 ALT 20 Alkaline Phosphatase 68 C-Reactive Protein 5.1 H Total Protein 7.3 Albumin 4.0 Ur Random Sodium Ur Random Potassium Ur Random Chloride Absolute CD3 Count % CD3+ Lymphocytes Absolute CD4 [place] % CD4+ Lymphocyte CD4/CD8 Ratio % CD8+ Lymphocyte Absolute CD8 Count COVID-19 (ERMA) HOSPITAL COURSE: Date of Admission:07/07/20 Date of Discharge: 07/10/20 50 year-old male with a PMH significant for HTN and HIV+, admitted for right buttock abscess. Sepsis secondary to right buttock abscess --T 101.2, p123 present on admission --had initial I&D in ED, woundm drained pus x 2 days --surgical consult requested: no further intervention indicated --treated initially with Vanc and Zosyn, switched to Bactrim --seen and evaluated by ID --[facility] at [facility] Hypertension --BP was elevated on admission, but normotensive thereafter --on no home anti-hypertensives HIV+ --diagnosed 1 1/2 years ago, has not sought treatment --CD4 724 --recommended outpatient followup at [facility] COVID --07/07 swab negative Minutes to complete discharge: 35 Discharge Summary Problems reviewed: Yes Reason For Visit: SEPSIS Current Active Problems Abscess (Acute) Encounter for screening laboratory testing for COVID-19 virus (Acute) HIV disease (Acute) Prophylactic measure (Acute) Sepsis (Acute) Tachycardia (Acute) Uncontrolled hypertension (Acute) Condition: Improved - Instructions Diet, Activity, Other Instructions: A prescription has been sent to your pharmacy for Bactrim which is an antibiotic to treat your skin abscess. Take this medication as directed. You have an appointment at the [facility], 5th floor, on July 13 at 8:30am. The contact number for the Wound Center is [phone]. Referrals: More Goodman MD [Staff Physician] - 2 Weeks Disposition: HOME - Home Medications Comprehensive Discharge Medication List: Ambulatory Orders NK [No Known Home Medication] 07/07/20 This patient is new to me today: No Emergency Visit: Yes ED Registration Date: 07/07/20 Care time: The patient presented to the Emergency Department on the above date and was hospitalized for further evaluation of their emergent condition. Critical Care patient: No - Discharge Referral Referred to [facility] Med P.C.: No
[2020-07-10] MEDS ORDERED: VANCOMYCIN HCL 1,250 MG in DEXTROSE 5%-WATER - 250 ML IVPB SCH (22:00)
== END 2020-07-10 13:52 | disposition home or self-care (01) | DRG 872 ==
LOC: FER 15:24 → FM/S 18:34
PROVIDERS: ADMIT Internal Medicine; ATTEND Nurse Practitioner Acute Care
PROC: 0J990ZX Drainage of Buttock Subcutaneous Tissue and Fascia, Open Approach, Diagnostic (ICD-10-PCS; principal; 2020-07-07)
DX: A41.89 Other specified sepsis (principal); L02.31 Cutaneous abscess of buttock; L03.317 Cellulitis of buttock; R50.9 Fever, unspecified; R00.0 Tachycardia, unspecified; Z21 Asymptomatic human immunodeficiency virus [HIV] infection status; I10 Essential (primary) hypertension; Z91.14 Patient's other noncompliance with medication regimen; Z11.59 Encounter for screening for other viral diseases
CPT/HCPCS: 36415; 71046-TC-FY; 72193-TC; 80053; 80307; 81003; 82436; 82550; 83605; 83735; 83930; 83935; 84133; 84300; 84484; 85025; 85027; 85610; 85651; 85730; 86140; 86359; 86360; 87040; 87070; 87086; 87186; 87205; 87389; 93005; 99285-25; J0131; Q9967; U0003

== ENCOUNTER 2025-03-02 07:41 | Inpatient (IN) | payer OTHER ==
[2025-03-02 09:27] LABS: ABSOLUTE IMMATURE GRANULOCYTES 0.03 x10^3/uL (0.0-0.031); BASOPHILS # 0.01 x10^3/uL (0.01-0.08); EOSINOPHIL % 2.9 % (0.8-7.0); EOSINOPHILS # 0.14 x10^3/uL (0.04-0.54); HEMATOCRIT 31.8 % (40.1-51.0); HEMOGLOBIN 10.1 g/dL (13.7-17.5); INR 1.02 (0.83-1.09); MCHC 31.8 g/dl (32.3-36.5); MEAN CELL VOLUME 86.2 fl (79.0-92.2); MEAN PLT VOLUME 10.3 fl (9.4-12.4); MONOCYTE # 0.27 x10^3/uL (0.30-0.82); MONOCYTE % 5.6 % (5.3-12.2); PLATELET COUNT 162 x10^3/uL (163-337); PROTHROMBIN TIME (PATIENT) 11.3 SEC (9.7-13.0); RDW 15.8 % (12.2-16.1)
[2025-03-02 09:34] LABS: ALBUMIN 3.6 g/dl (3.4-5.0); CREATININE 1.8 mg/dl (0.6-1.3); POTASSIUM 4.1 mmol/L (3.5-5.1); TOT PROT 7.8 g/dl (6.4-8.2)
[2025-03-02 09:38] LABS: CALCIUM 14.6 mg/dl (8.5-10.1)
[2025-03-02 13:24] LABS: AMORP URATES FEW /hpf (NONE SEEN); CALCIUM OXALATE CRYSTALS FEW /hpf (NONE SEEN); EPITHELIAL CELLS 0-5 /hpf
[2025-03-02] MEDS: SODIUM CHLORIDE 1,000 ML IV STA (14:01)
[2025-03-02] MEDS ORDERED: LORazepam 2 MG/ML SDV VIAL IVPUSH PRN (16:36)
[2025-03-02] MEDS: amLODIPine BESYLATE 5 MG TABLET (FP) PO SCH (17:04)
[2025-03-02 18:15] LABS: AMYLASE 242 U/L (29-103)
[2025-03-02 19:29] LABS: HIV INTERPRETATION PRESUMPTIVE POSITIVE (NEGATIVE)
[2025-03-02 21:16] LABS: METHADONE, UR NEGATIVE (NEGATIVE); URINE AMPHETAMINES NEGATIVE (NEGATIVE); URINE BARBITURATES NEGATIVE (NEGATIVE); URINE BENZODIAZEPINES NEGATIVE (NEGATIVE)
[2025-03-02 21:18] LABS: PHENCYCLIDINE,URINE NEGATIVE (NEGATIVE)
[2025-03-02 21:23] LABS: COCAINE, UR NEGATIVE (NEGATIVE); OPIATES, URI NEGATIVE (NEGATIVE)
[2025-03-03 07:43] LABS: ABSOLUTE IMMATURE GRANULOCYTES 0.03 x10^3/uL (0.0-0.031); BASOPHILS # 0.02 x10^3/uL (0.01-0.08); EOSINOPHIL % 6.2 % (0.8-7.0); EOSINOPHILS # 0.31 x10^3/uL (0.04-0.54); HEMATOCRIT 29.6 % (40.1-51.0); HEMOGLOBIN 9.5 g/dL (13.7-17.5); MCHC 32.1 g/dl (32.3-36.5); MEAN CELL VOLUME 85.8 fl (79.0-92.2); MEAN PLT VOLUME 9.4 fl (9.4-12.4); MONOCYTE # 0.35 x10^3/uL (0.30-0.82); PLATELET COUNT 146 x10^3/uL (163-337)
[2025-03-03 08:09] LABS: HCG,TUMOR MARKER < 1.0 mIU/mL (0-3)
[2025-03-03] MEDS: LABETALOL HCL 20 MG/4 ML VIAL IVPUSH PRN (08:12)
[2025-03-03 08:15] LABS: ALBUMIN 3.2 g/dl (3.4-5.0); CALCIUM 13.6 mg/dl (8.5-10.1); CREATININE 1.6 mg/dl (0.6-1.3); POTASSIUM 3.7 mmol/L (3.5-5.1); TOT PROT 7.4 g/dl (6.4-8.2)
[2025-03-03] MEDS ORDERED: amLODIPine BESYLATE 5 MG TABLET (FP) PO SCH (09:45)
[2025-03-03] MEDS ORDERED: niCARdipine HCL 25 MG/10 ML AMPUL IVPB ONE (09:58)
[2025-03-03] MEDS ORDERED: PROPOFOL 1,000,000 MCG/100 ML VIAL ONE (10:06)
[2025-03-03] MEDS: PROPOFOL 1,000,000 MCG/100 ML VIAL IVPB SCH (10:30)
[2025-03-03 10:54] LABS: HEMATOCRIT 32.3 % (40.1-51.0); MEAN CELL VOLUME 87.1 fl (79.0-92.2); MEAN PLT VOLUME 10.5 fl (9.4-12.4); PLATELET COUNT 181 x10^3/uL (163-337); RDW 16.2 % (12.2-16.1)
[2025-03-03] MEDS: LORazepam 2 MG/ML SDV VIAL IVPUSH ONE (10:55)
[2025-03-03 11:01] LABS: INR 1.14 (0.83-1.09); PROTHROMBIN TIME (PATIENT) 12.4 SEC (9.7-13.0)
[2025-03-03] MEDS: NICARDIPINE 25 MG in DEXTROSE 5%-WATER - 240 ML IVPB SCH (11:01)
[2025-03-03 11:29] LABS: ALBUMIN 2.9 g/dl (3.4-5.0); MAGNESIUM 2.1 mg/dL (1.8-2.4)
[2025-03-03 11:32] LABS: BILIRUBIN,TOTAL 7.2 mg/dL (0.2-1); CREATININE 1.7 mg/dL (0.55-1.3); PHOSPHOROUS 5.9 mg/dL (2.5-4.9); TOT PROT 7.9 g/dl (6.4-8.2)
[2025-03-03] MEDS: amLODIPine BESYLATE 10 MG TABLET (FP) PO SCH (11:58)
[2025-03-03] MEDS: MUPIROCIN 2% TOPICAL OINTMENT FOR DECOLONIZATION NS SCH (11:59)
[2025-03-03 13:53] LABS: ARTERIAL BLD GAS O2 SATURATION 99.8 % (95-98); ARTERIAL BLOOD GAS BASE EXCESS 1.2 mmol/L (-2-2); ARTERIAL BLOOD GAS PO2 463.9 mmHg (80-100); ARTERIAL BLOOD GAS pH 7.366 (7.350-7.450)
[2025-03-03 13:54] LABS: PT'S TEMP 99.9; VENT MODE A/C; VENT RATE 14
[2025-03-03] MEDS: PIPERACILLIN/TAZOB 2.25 GM 2.25 GM/50 ML BAG IVPB SCH (13:55)
[2025-03-03] MEDS ORDERED: LABETALOL HCL 20 MG/4 ML VIAL IVPUSH PRN (19:56)
[2025-03-03] MEDS ORDERED: LORazepam 2 MG/ML SDV VIAL IVPUSH PRN (19:56)
[2025-03-03] MEDS: ACETAMINOPHEN 1000 MG/100 ML BAG IVPB PRN (20:49)
[2025-03-03] MEDS: CHLORHEXIDINE GLUCONATE 4% CLEANSER FOR DECOLONIZATION TP SCH (21:18)
[2025-03-03] MEDS: levETIRAcetam 500 MG/5 ML INJECTION VIAL IVPB SCH (21:18)
[2025-03-04 06:14] LABS: HEMATOCRIT 28.8 % (40.1-51.0); HEMOGLOBIN 8.7 g/dL (13.7-17.5); MCHC 30.2 g/dl (32.3-36.5); MEAN CELL VOLUME 87.8 fl (79.0-92.2); MEAN PLT VOLUME 10.1 fl (9.4-12.4); PLATELET COUNT 150 x10^3/uL (163-337); RDW 16.5 % (12.2-16.1)
[2025-03-04 06:28] LABS: POTASSIUM 3.6 mmol/L (3.5-5.1)
[2025-03-04 06:29] LABS: CALCIUM 13.2 mg/dL (8.5-10.1)
[2025-03-04 06:30] LABS: ALBUMIN 2.5 g/dl (3.4-5.0); MAGNESIUM 2.2 mg/dL (1.8-2.4)
[2025-03-04 06:33] LABS: CREATININE 1.9 mg/dL (0.55-1.3); PHOSPHOROUS 4.8 mg/dL (2.5-4.9)
[2025-03-04 06:36] LABS: TOT PROT 7.1 g/dl (6.4-8.2)
[2025-03-04] MEDS ORDERED: amLODIPine BESYLATE 10 MG TABLET (FP) GT SCH (10:50)
[2025-03-04] MEDS: amLODIPine BESYLATE 10 MG TABLET (FP) GT SCH (11:01)
[2025-03-04 11:08] LABS: POTASSIUM 3.9 mmol/L (3.5-5.1)
[2025-03-04 11:09] LABS: BLOOD UREA NITROGEN 59.3 mg/dL (7-18)
[2025-03-04] MEDS: LABETALOL HCL 20 MG/4 ML VIAL IVPUSH PRN (11:40)
[2025-03-04] MEDS: DEXTROSE 5%-0.45% SALINE 1,000 ML IV SCH (12:15)
[2025-03-04 12:57] LABS: HEPATITIS B SURF AG NON-MATERN NON-REACTIVE (NONREACTIVE)
[2025-03-04] MEDS: PIPERACILLIN/TAZOB 2.25 GM 2.25 GM in DEXTROSE 5%-WATER - 50 ML IVPB SCH (17:38)
[2025-03-04] MEDS: DEXMEDETOMIDINE PREMIX 400 MCG/100 ML BAG IVPB SCH (21:54)
[2025-03-05 06:45] LABS: HEMOGLOBIN 7.8 g/dL (13.7-17.5); PLATELET COUNT 132 x10^3/uL (163-337)
[2025-03-05 06:46] LABS: ARTERIAL BLOOD GAS BASE EXCESS 2.9 mmol/L (-2-2); ARTERIAL BLOOD GAS PO2 162.6 mmHg (80-100); ARTERIAL BLOOD GAS pH 7.389 (7.350-7.450)
[2025-03-05 06:47] LABS: HEMATOCRIT 26.1 % (40.1-51.0); MCHC 29.9 g/dl (32.3-36.5); MEAN CELL VOLUME 90.3 fl (79.0-92.2); MEAN PLT VOLUME 10.2 fl (9.4-12.4); RDW 16.9 % (12.2-16.1)
[2025-03-05 06:51] LABS: ALLENS TEST POSITIVE
[2025-03-05 06:52] LABS: VENT MODE PSV
[2025-03-05 07:08] LABS: ALBUMIN 2.2 g/dl (3.4-5.0)
[2025-03-05 07:10] LABS: BILIRUBIN,DIRECT 6.9 mg/dL (0.0-0.2)
[2025-03-05 07:11] LABS: PHOSPHOROUS 4.2 mg/dL (2.5-4.9)
[2025-03-05 07:12] LABS: BILIRUBIN,TOTAL 7.8 mg/dL (0.2-1); TOT PROT 6.7 g/dl (6.4-8.2)
[2025-03-05 10:42] LABS: POTASSIUM 3.7 mmol/L (3.5-5.1)
[2025-03-05 10:43] LABS: CALCIUM 12.2 mg/dL (8.5-10.1)
[2025-03-05 10:44] LABS: BLOOD UREA NITROGEN 62.7 mg/dL (7-18)
[2025-03-05 10:47] LABS: CREATININE 2.1 mg/dL (0.55-1.3)
[2025-03-05] MEDS: ASPIRIN 81 MG CHEWABLE TABLETS PO SCH (16:03)
[2025-03-05] MEDS: LABETALOL HCL 20 MG/4 ML VIAL IVPUSH SCH (18:28)
[2025-03-05] MEDS: hydrALAZINE HCL 20 MG/ML VIAL IVPUSH PRN (18:56)
[2025-03-05] MEDS: NICOTINE 21 MG/24 HOURS TOPICAL PATCH TD SCH (19:30)
[2025-03-06] MEDS: LABETALOL HCL 20 MG/4 ML VIAL IVPUSH SCH ×2 (05:38→16:35)
[2025-03-06 06:04] LABS: ARTERIAL BLOOD GAS BASE EXCESS 5.7 mmol/L (-2-2); ARTERIAL BLOOD GAS PO2 80.8 mmHg (80-100); ARTERIAL BLOOD GAS pH 7.526 (7.350-7.450)
[2025-03-06 06:08] LABS: ALLENS TEST POSITIVE
[2025-03-06 06:36] LABS: HEMATOCRIT 29.2 % (40.1-51.0); MCHC 30.8 g/dl (32.3-36.5); MEAN CELL VOLUME 87.2 fl (79.0-92.2); MEAN PLT VOLUME 10.7 fl (9.4-12.4); PLATELET COUNT 189 x10^3/uL (163-337); RDW 16.6 % (12.2-16.1)
[2025-03-06 06:43] LABS: INR 1.17 (0.83-1.09); PROTHROMBIN TIME (PATIENT) 12.7 SEC (9.7-13.0)
[2025-03-06 06:55] LABS: BLOOD UREA NITROGEN 51.6 mg/dL (7-18); MAGNESIUM 1.7 mg/dL (1.8-2.4)
[2025-03-06 06:57] LABS: BILIRUBIN,DIRECT 8.3 mg/dL (0.0-0.2); BILIRUBIN,TOTAL 9.7 mg/dL (0.2-1)
[2025-03-06 06:58] LABS: CREATININE 1.8 mg/dL (0.55-1.3); PHOSPHOROUS 2.2 mg/dL (2.5-4.9)
[2025-03-06 07:00] LABS: TOT PROT 7.1 g/dl (6.4-8.2)
[2025-03-06 07:59] LABS: ALBUMIN 2.3 g/dl (3.4-5.0); POTASSIUM 3.2 mmol/L (3.5-5.1)
[2025-03-06] MEDS: DEXMEDETOMIDINE PREMIX 400 MCG/100 ML BAG IVPB SCH (08:21)
[2025-03-06] MEDS: MAGNESIUM 1GM/D5W 100ML - 100 ML IVPB IVPB ONE (08:21)
[2025-03-06] MEDS: NAPH,MB-DB/K PH,MBDB POWDER PACKET GT ONE (09:40)
[2025-03-06] MEDS: POTASSIUM PHOSPHATE 15 MM in DEXTROSE 5%-WATER - 100 ML IVPB ONE (10:41)
[2025-03-06] MEDS ORDERED: AMINO ACIDS 4.25%/D5W 1,000 ML IV SCH (13:30)
[2025-03-06] MEDS: AMINO ACIDS 4.25%/D5W 1,000 ML IV SCH (14:02)
[2025-03-06 15:55] VITALS: BMI 17.1
[2025-03-06 20:07] LABS: ANTIGLOMERULAR BASEMENT MEN.AB <0.2 units (0.0-0.9)
[2025-03-07 07:00] LABS: HEMATOCRIT 24.7 % (40.1-51.0); MEAN CELL VOLUME 88.5 fl (79.0-92.2)
[2025-03-07 07:01] LABS: ABSOLUTE IMMATURE GRANULOCYTES 0.04 x10^3/uL (0.0-0.031); BASOPHILS # 0.01 x10^3/uL (0.01-0.08); EOSINOPHIL % 5.5 % (0.8-7.0); EOSINOPHILS # 0.16 x10^3/uL (0.04-0.54); HEMOGLOBIN 7.4 g/dL (13.7-17.5); MEAN PLT VOLUME 11.4 fl (9.4-12.4); MONOCYTE # 0.16 x10^3/uL (0.30-0.82); MONOCYTE % 5.5 % (5.3-12.2); PLATELET COUNT 144 x10^3/uL (163-337); RDW 17.1 % (12.2-16.1)
[2025-03-07 08:30] LABS: POTASSIUM 3.2 mmol/L (3.5-5.1)
[2025-03-07 08:40] LABS: CALCIUM 12.3 mg/dL (8.5-10.1)
[2025-03-07 08:41] LABS: BLOOD UREA NITROGEN 52.5 mg/dL (7-18); MAGNESIUM 2.1 mg/dL (1.8-2.4)
[2025-03-07 08:44] LABS: CREATININE 1.7 mg/dL (0.55-1.3); PHOSPHOROUS 3.2 mg/dL (2.5-4.9)
[2025-03-07 08:45] LABS: BILIRUBIN,TOTAL 9.3 mg/dL (0.2-1); TOT PROT 6.3 g/dl (6.4-8.2)
[2025-03-07] MEDS: PANTOPRAZOLE 40 MG TABLET PO SCH (09:28)
[2025-03-07] MEDS: KCL 10 MEQ IVPB 10 MEQ/100 ML INFUS.BAG IVPB SCH (10:06)
[2025-03-07] MEDS: SODIUM CHLORIDE 0.45% 1,000 ML IV SCH (11:31)
[2025-03-07 17:23] LABS: POTASSIUM 3.3 mmol/L (3.5-5.1)
[2025-03-07 17:24] LABS: CALCIUM 11.7 mg/dL (8.5-10.1)
[2025-03-07 17:25] LABS: BLOOD UREA NITROGEN 48.3 mg/dL (7-18)
[2025-03-07 17:28] LABS: CREATININE 1.6 mg/dL (0.55-1.3)
[2025-03-08 07:01] LABS: HEMATOCRIT 24.3 % (40.1-51.0); HEMOGLOBIN 7.4 g/dL (13.7-17.5); MCHC 30.5 g/dl (32.3-36.5); MEAN CELL VOLUME 89.7 fl (79.0-92.2); MEAN PLT VOLUME 10.7 fl (9.4-12.4); PLATELET COUNT 131 x10^3/uL (163-337); RDW 17.2 % (12.2-16.1)
[2025-03-08 07:04] LABS: ABSOLUTE IMMATURE GRANULOCYTES 0.02 x10^3/uL (0.0-0.031); BASOPHILS # 0.01 x10^3/uL (0.01-0.08); EOSINOPHIL % 9.9 % (0.8-7.0); EOSINOPHILS # 0.25 x10^3/uL (0.04-0.54); HEMATOCRIT 24.2 % (40.1-51.0); HEMOGLOBIN 7.3 g/dL (13.7-17.5); MCHC 30.2 g/dl (32.3-36.5); MEAN CELL VOLUME 88.6 fl (79.0-92.2); MEAN PLT VOLUME 10.9 fl (9.4-12.4); PLATELET COUNT 133 x10^3/uL (163-337); RDW 17.2 % (12.2-16.1)
[2025-03-08 07:11] LABS: INR 1.15 (0.83-1.09); PROTHROMBIN TIME (PATIENT) 12.5 SEC (9.7-13.0)
[2025-03-08 07:32] LABS: ALBUMIN 1.8 g/dl (3.4-5.0)
[2025-03-08 07:33] LABS: CALCIUM 11.5 mg/dL (8.5-10.1)
[2025-03-08 07:34] LABS: BLOOD UREA NITROGEN 46.4 mg/dL (7-18); MAGNESIUM 1.8 mg/dL (1.8-2.4)
[2025-03-08 07:37] LABS: CREATININE 1.5 mg/dL (0.55-1.3); PHOSPHOROUS 2.7 mg/dL (2.5-4.9)
[2025-03-08 07:38] LABS: BILIRUBIN,TOTAL 9.7 mg/dL (0.2-1)
[2025-03-08] MEDS: KCL 10 MEQ IVPB 10 MEQ/100 ML INFUS.BAG IVPB SCH (09:06)
[2025-03-08] MEDS ORDERED: MIDAZOLAM HCL 2 MG/2 ML SINGLE DOSE VIAL ONE (15:06)
[2025-03-08 16:08] LABS: MITOCHONDRIAL AB 27.2 Units (0.0-20.0)
[2025-03-08] MEDS ORDERED: GLUCAGON 1 MG KIT ONE (16:30)
[2025-03-08 16:50] LABS: POTASSIUM 3.2 mmol/L (3.5-5.1)
[2025-03-08] MEDS: INDOMETHACIN 50 MG RECTAL SUPPOSITORY PR ONE ×2 (16:55→20:14)
[2025-03-09] MEDS: LACTATED RINGERS SOLUTION 1,000 ML/1,000 ML INFUS.BAG IV SCH (06:48)
[2025-03-09 06:51] LABS: HEMATOCRIT 23.6 % (40.1-51.0); HEMOGLOBIN 7.1 g/dL (13.7-17.5); MCHC 30.1 g/dl (32.3-36.5); MEAN CELL VOLUME 89.1 fl (79.0-92.2); MEAN PLT VOLUME 10.3 fl (9.4-12.4); PLATELET COUNT 123 x10^3/uL (163-337); RDW 17.1 % (12.2-16.1)
[2025-03-09 06:59] LABS: CHLORIDE 113 mmol/L (98-107); POTASSIUM 3.7 mmol/L (3.5-5.1); SODIUM 142 mmol/L (136-145)
[2025-03-09 07:08] LABS: ALBUMIN 1.8 g/dl (3.4-5.0); CALCIUM 11.8 mg/dL (8.5-10.1)
[2025-03-09 07:09] LABS: ANION GAP 4 mmol/L (4-13); BLOOD UREA NITROGEN 54.7 mg/dL (7-18); CO2 25 mmol/L (21-32); GLUCOSE,RANDOM 110 mg/dL (74-106); MAGNESIUM 1.8 mg/dL (1.8-2.4)
[2025-03-09 07:11] LABS: SGOT/AST 243 U/L (15-37); SGPT/ALT 179 U/L (13-61)
[2025-03-09 07:12] LABS: CREATININE 1.6 mg/dL (0.55-1.3)
[2025-03-09 07:13] LABS: TOT PROT 5.8 g/dl (6.4-8.2)
[2025-03-09 07:15] LABS: BILIRUBIN,TOTAL 8.5 mg/dL (0.2-1)
[2025-03-09 07:29] LABS: ALK PHOS > 2330 U/L (45-117)
[2025-03-09 16:07] LABS: PARATHYROID HORM INTACT 5 pg/mL (15-65)
[2025-03-09 17:07] LABS: C-ANCA <1:20 titer (Neg:<1:20)
[2025-03-10 06:45] LABS: HEMATOCRIT 24.4 % (40.1-51.0); HEMOGLOBIN 7.3 g/dL (13.7-17.5); MCHC 29.9 g/dl (32.3-36.5); MEAN CELL VOLUME 88.1 fl (79.0-92.2); MEAN PLT VOLUME 11.9 fl (9.4-12.4); PLATELET COUNT 167 x10^3/uL (163-337); RDW 16.7 % (12.2-16.1)
[2025-03-10 06:49] LABS: POTASSIUM 3.2 mmol/L (3.5-5.1)
[2025-03-10 06:50] LABS: ALBUMIN 1.7 g/dl (3.4-5.0); CALCIUM 11.5 mg/dL (8.5-10.1)
[2025-03-10 06:55] LABS: TOT PROT 5.9 g/dl (6.4-8.2)
[2025-03-10 07:02] LABS: CREATININE 1.4 mg/dL (0.55-1.3)
[2025-03-10 07:13] LABS: BILIRUBIN,TOTAL 5.1 mg/dL (0.2-1)
[2025-03-10] MEDS: KCL 10 MEQ IVPB 10 MEQ/100 ML INFUS.BAG IVPB SCH (09:38)
[2025-03-10] MEDS: LABETALOL HCL 20 MG/4 ML VIAL IVPUSH SCH (11:17)
[2025-03-10] MEDS: LABETALOL HCL 100 MG TABLET (FP) PO SCH (13:08)
[2025-03-11] MEDS: LACTATED RINGERS SOLUTION 1,000 ML/1,000 ML INFUS.BAG IV SCH ×2 (02:14→17:01)
[2025-03-11] MEDS: PIPERACILLIN/TAZOB 2.25 GM 2.25 GM in DEXTROSE 5%-WATER - 50 ML IVPB SCH (02:15)
[2025-03-11] MEDS: LABETALOL HCL 100 MG TABLET (FP) PO SCH (05:44)
[2025-03-11] MEDS: hydrALAZINE HCL 20 MG/ML VIAL IVPUSH PRN (06:58)
[2025-03-11 07:05] LABS: HEMATOCRIT 24.9 % (40.1-51.0); HEMOGLOBIN 7.7 g/dL (13.7-17.5); MCHC 30.9 g/dl (32.3-36.5); MEAN CELL VOLUME 87.4 fl (79.0-92.2); MEAN PLT VOLUME 10.2 fl (9.4-12.4); PLATELET COUNT 169 x10^3/uL (163-337); RDW 16.8 % (12.2-16.1)
[2025-03-11 07:20] LABS: POTASSIUM 3.2 mmol/L (3.5-5.1)
[2025-03-11 07:24] LABS: CALCIUM 12.4 mg/dL (8.5-10.1)
[2025-03-11 07:25] LABS: BLOOD UREA NITROGEN 39.9 mg/dL (7-18)
[2025-03-11 07:28] LABS: CREATININE 1.4 mg/dL (0.55-1.3)
[2025-03-11] MEDS: levETIRAcetam 500 MG/5 ML INJECTION VIAL IVPB SCH (09:53)
[2025-03-11] MEDS: amLODIPine BESYLATE 10 MG TABLET (FP) GT SCH (09:53)
[2025-03-11] MEDS: ASPIRIN 81 MG CHEWABLE TABLETS PO SCH (09:53)
[2025-03-11] MEDS: NICOTINE 21 MG/24 HOURS TOPICAL PATCH TD SCH (09:53)
[2025-03-11] MEDS: PANTOPRAZOLE 40 MG TABLET PO SCH (09:53)
[2025-03-11] MEDS: ACETAMINOPHEN 1000 MG/100 ML BAG IVPB PRN (09:53)
[2025-03-11 11:04] LABS: ABSOLUTE IMMATURE GRANULOCYTES 0.06 x10^3/uL (0.0-0.031); EOSINOPHIL % 2.2 % (0.8-7.0); EOSINOPHILS # 0.08 x10^3/uL (0.04-0.54); HEMATOCRIT 24.4 % (40.1-51.0); HEMOGLOBIN 7.4 g/dL (13.7-17.5); MCHC 30.3 g/dl (32.3-36.5); MEAN CELL VOLUME 87.8 fl (79.0-92.2); MONOCYTE # 0.21 x10^3/uL (0.30-0.82); MONOCYTE % 5.8 % (5.3-12.2); PLATELET COUNT 179 x10^3/uL (163-337); RDW 16.9 % (12.2-16.1)
[2025-03-11 11:33] LABS: CHLORIDE 117 mmol/L (98-107); POTASSIUM 3.2 mmol/L (3.5-5.1); SODIUM 149 mmol/L (136-145)
[2025-03-11 11:34] LABS: CALCIUM 12.1 mg/dL (8.5-10.1)
[2025-03-11 11:35] LABS: ANION GAP 6 mmol/L (4-13); BLOOD UREA NITROGEN 35.9 mg/dL (7-18); CO2 25 mmol/L (21-32); GLUCOSE,RANDOM 95 mg/dL (74-106)
[2025-03-11 11:38] LABS: CREATININE 1.4 mg/dL (0.55-1.3)
[2025-03-11 12:34] LABS: ALBUMIN 1.8 g/dl (3.4-5.0)
[2025-03-11 12:37] LABS: BILIRUBIN,DIRECT 7.1 mg/dL (0.0-0.2); SGOT/AST 199 U/L (15-37); SGPT/ALT 156 U/L (13-61)
[2025-03-11 12:39] LABS: TOT PROT 5.9 g/dl (6.4-8.2)
[2025-03-11 12:55] LABS: BILIRUBIN,TOTAL 8.2 mg/dL (0.2-1)
[2025-03-11 13:04] LABS: ALK PHOS > 2330 U/L (45-117)
[2025-03-11] MEDS: BICTEGRAV/EMTRICIT/TENOFOV (BIKTARVY) 50-200-25 MG TABLET PO SCH (14:52)
[2025-03-11] MEDS: CHLORHEXIDINE GLUCONATE 4% CLEANSER FOR DECOLONIZATION TP SCH (21:01)
[2025-03-12 06:38] LABS: ABSOLUTE IMMATURE GRANULOCYTES 0.09 x10^3/uL (0.0-0.031); BASOPHILS # 0.01 x10^3/uL (0.01-0.08); EOSINOPHIL % 1.4 % (0.8-7.0); EOSINOPHILS # 0.07 x10^3/uL (0.04-0.54); HEMOGLOBIN 6.9 g/dL (13.7-17.5); MEAN CELL VOLUME 87.1 fl (79.0-92.2); MEAN PLT VOLUME 10.2 fl (9.4-12.4); MONOCYTE # 0.19 x10^3/uL (0.30-0.82); MONOCYTE % 3.9 % (5.3-12.2); PLATELET COUNT 179 x10^3/uL (163-337)
[2025-03-12 07:03] LABS: CHLORIDE 116 mmol/L (98-107); POTASSIUM 3.1 mmol/L (3.5-5.1); SODIUM 148 mmol/L (136-145)
[2025-03-12 07:15] LABS: CALCIUM 12.2 mg/dL (8.5-10.1)
[2025-03-12 07:16] LABS: ALBUMIN 1.7 g/dl (3.4-5.0); ANION GAP 5 mmol/L (4-13); BLOOD UREA NITROGEN 36.6 mg/dL (7-18); CO2 27 mmol/L (21-32); GLUCOSE,RANDOM 102 mg/dL (74-106)
[2025-03-12 07:19] LABS: CREATININE 1.6 mg/dL (0.55-1.3); SGOT/AST 223 U/L (15-37); SGPT/ALT 170 U/L (13-61)
[2025-03-12 07:21] LABS: TOT PROT 5.9 g/dl (6.4-8.2)
[2025-03-12 07:55] LABS: ALK PHOS > 2330 U/L (45-117)
[2025-03-12 08:21] LABS: LDH 238 U/L (87-246)
[2025-03-12] MEDS: POTASSIUM CHLORIDE ORAL LIQUID 20 MEQ/15 ML PO ONE (09:20)
[2025-03-12] MEDS: amLODIPine BESYLATE 10 MG TABLET (FP) PO SCH (09:24)
[2025-03-12 09:27] LABS: ERYTHROCYTE SEDIMENTATION RATE 97 mm/hr (0-20)
[2025-03-12] MEDS: IBUPROFEN 400 MG TABLET (FP) PO PRN (11:27)
[2025-03-12 12:34] LABS: BILIRUBIN,DIRECT 8.4 mg/dL (0.0-0.2)
[2025-03-12] MEDS: LACTULOSE 20 GM/30 ML UDC (FOR ORAL USE ONLY) PO PRN (13:37)
[2025-03-12] MEDS: LACTULOSE 20 GM/30 ML UDC (FOR ORAL USE ONLY) PO SCH (13:54)
[2025-03-12] MEDS ORDERED: ACETAMINOPHEN 325 MG TABLET (FP) PO PRN (15:55)
[2025-03-12 19:12] LABS: ABSOLUTE IMMATURE GRANULOCYTES 0.07 x10^3/uL (0.0-0.031); EOSINOPHIL % 2.2 % (0.8-7.0); HEMATOCRIT 24.2 % (40.1-51.0); HEMOGLOBIN 7.5 g/dL (13.7-17.5); MEAN CELL VOLUME 86.7 fl (79.0-92.2); MEAN PLT VOLUME 10.5 fl (9.4-12.4); MONOCYTE # 0.13 x10^3/uL (0.30-0.82); MONOCYTE % 2.9 % (5.3-12.2); PLATELET COUNT 172 x10^3/uL (163-337); RDW 16.7 % (12.2-16.1)
[2025-03-12] MEDS ORDERED: POTASSIUM CHLORIDE ORAL LIQUID 20 MEQ/15 ML PO SCH (22:45)
[2025-03-13] MEDS: KCL 10 MEQ IVPB 10 MEQ/100 ML INFUS.BAG IVPB SCH ×3 (00:14→12:56)
[2025-03-13 00:49] LABS: HEMATOCRIT 26.4 % (40.1-51.0); HEMOGLOBIN 8.4 g/dL (13.7-17.5); MCHC 31.8 g/dl (32.3-36.5); MEAN PLT VOLUME 10.6 fl (9.4-12.4); PLATELET COUNT 178 x10^3/uL (163-337); RDW 16.7 % (12.2-16.1)
[2025-03-13 06:44] LABS: INR 1.21 (0.83-1.09); PROTHROMBIN TIME (PATIENT) 13.3 SEC (9.7-13.0)
[2025-03-13 06:51] LABS: ABSOLUTE IMMATURE GRANULOCYTES 0.05 x10^3/uL (0.0-0.031); BASOPHILS # 0.01 x10^3/uL (0.01-0.08); EOSINOPHIL % 2.3 % (0.8-7.0); EOSINOPHILS # 0.12 x10^3/uL (0.04-0.54); HEMATOCRIT 29.2 % (40.1-51.0); HEMOGLOBIN 9.4 g/dL (13.7-17.5); MCHC 32.2 g/dl (32.3-36.5); MEAN CELL VOLUME 84.1 fl (79.0-92.2); MEAN PLT VOLUME 10.3 fl (9.4-12.4); MONOCYTE # 0.12 x10^3/uL (0.30-0.82); MONOCYTE % 2.3 % (5.3-12.2); PLATELET COUNT 173 x10^3/uL (163-337)
[2025-03-13 06:57] LABS: CHLORIDE 115 mmol/L (98-107); POTASSIUM 3.1 mmol/L (3.5-5.1); SODIUM 146 mmol/L (136-145)
[2025-03-13 07:10] LABS: ALBUMIN 1.7 g/dl (3.4-5.0); CALCIUM 11.8 mg/dL (8.5-10.1)
[2025-03-13 07:11] LABS: ANION GAP 5 mmol/L (4-13); BLOOD UREA NITROGEN 35.7 mg/dL (7-18); CO2 25 mmol/L (21-32); GLUCOSE,RANDOM 104 mg/dL (74-106); MAGNESIUM 1.6 mg/dL (1.8-2.4)
[2025-03-13 07:13] LABS: SGPT/ALT 155 U/L (13-61)
[2025-03-13 07:14] LABS: CREATININE 1.7 mg/dL (0.55-1.3); PHOSPHOROUS 2.3 mg/dL (2.5-4.9); SGOT/AST 171 U/L (15-37)
[2025-03-13 07:15] LABS: TOT PROT 5.9 g/dl (6.4-8.2)
[2025-03-13] MEDS ORDERED: hydrALAZINE HCL 20 MG/ML VIAL IVPUSH PRN (07:49)
[2025-03-13] MEDS: MAGNESIUM SULFATE IN WATER 2 GM/50 ML IVPB IVPB ONE (07:56)
[2025-03-13] MEDS: NAPH,MB-DB/K PH,MBDB POWDER PACKET PO ONE (07:56)
[2025-03-13 07:59] LABS: ALK PHOS > 2330 U/L (45-117); BILIRUBIN,TOTAL 12.4 mg/dL (0.2-1)
[2025-03-13] MEDS ORDERED: POTASSIUM CHLORIDE ORAL LIQUID 20 MEQ/15 ML PO ONE (08:15)
[2025-03-13] MEDS: KCL 20 MEQ PREMIX BAG 20 MEQ/100 ML INFUS.BAG IVPB SCH (09:45)
[2025-03-13] MEDS: POTASSIUM CHLORIDE TABS 20 MEQ TABLET.ER (FP) PO SCH (09:45)
[2025-03-13 12:41] LABS: CHLORIDE 117 mmol/L (98-107); POTASSIUM 3.2 mmol/L (3.5-5.1); SODIUM 148 mmol/L (136-145)
[2025-03-13 12:58] LABS: ALBUMIN 1.6 g/dl (3.4-5.0); BLOOD UREA NITROGEN 34.5 mg/dL (7-18); CALCIUM 11.6 mg/dL (8.5-10.1); GLUCOSE,RANDOM 103 mg/dL (74-106)
[2025-03-13 12:59] LABS: ANION GAP 4 mmol/L (4-13); CO2 27 mmol/L (21-32)
[2025-03-13 13:01] LABS: CREATININE 1.5 mg/dL (0.55-1.3); PHOSPHOROUS 2.5 mg/dL (2.5-4.9); SGOT/AST 152 U/L (15-37); SGPT/ALT 138 U/L (13-61)
[2025-03-13 13:02] LABS: BILIRUBIN,TOTAL 12.2 mg/dL (0.2-1); TOT PROT 5.5 g/dl (6.4-8.2)
[2025-03-13 13:24] LABS: ALK PHOS > 2330 U/L (45-117)
[2025-03-13] MEDS ORDERED: MIDAZOLAM HCL 2 MG/2 ML SINGLE DOSE VIAL ONE (14:02)
[2025-03-13] MEDS: SODIUM CHLORIDE 0.45% 1,000 ML IV SCH (18:57)
[2025-03-13] MEDS: PIPERACILLIN/TAZOB 4.5 GM 4.5 GM in DEXTROSE 5%-WATER 100 ML IVPB SCH (20:08)
[2025-03-13 23:51] LABS: ABSOLUTE IMMATURE GRANULOCYTES 0.05 x10^3/uL (0.0-0.031); EOSINOPHIL % 0.2 % (0.8-7.0); EOSINOPHILS # 0.01 x10^3/uL (0.04-0.54); HEMATOCRIT 27.6 % (40.1-51.0); HEMOGLOBIN 8.6 g/dL (13.7-17.5); MCHC 31.2 g/dl (32.3-36.5); MEAN CELL VOLUME 86.5 fl (79.0-92.2); MEAN PLT VOLUME 11.5 fl (9.4-12.4); MONOCYTE # 0.15 x10^3/uL (0.30-0.82); MONOCYTE % 3.5 % (5.3-12.2); PLATELET COUNT 160 x10^3/uL (163-337); RDW 17.9 % (12.2-16.1)
[2025-03-14 07:00] LABS: ABSOLUTE IMMATURE GRANULOCYTES 0.03 x10^3/uL (0.0-0.031); BASOPHILS # 0.01 x10^3/uL (0.01-0.08); EOSINOPHIL % 1.9 % (0.8-7.0); EOSINOPHILS # 0.08 x10^3/uL (0.04-0.54); HEMATOCRIT 27.6 % (40.1-51.0); HEMOGLOBIN 8.6 g/dL (13.7-17.5); MCHC 31.2 g/dl (32.3-36.5); MEAN CELL VOLUME 87.1 fl (79.0-92.2); MEAN PLT VOLUME 10.9 fl (9.4-12.4); MONOCYTE # 0.18 x10^3/uL (0.30-0.82); MONOCYTE % 4.2 % (5.3-12.2); PLATELET COUNT 138 x10^3/uL (163-337); RDW 18.1 % (12.2-16.1)
[2025-03-14 07:19] LABS: POTASSIUM 3.6 mmol/L (3.5-5.1)
[2025-03-14 07:24] LABS: CALCIUM 11.2 mg/dL (8.5-10.1)
[2025-03-14 07:25] LABS: ALBUMIN 1.5 g/dl (3.4-5.0); BLOOD UREA NITROGEN 41.7 mg/dL (7-18); MAGNESIUM 1.9 mg/dL (1.8-2.4)
[2025-03-14 07:28] LABS: CREATININE 1.6 mg/dL (0.55-1.3); PHOSPHOROUS 3.9 mg/dL (2.5-4.9)
[2025-03-14 07:30] LABS: TOT PROT 5.6 g/dl (6.4-8.2)
[2025-03-14 07:46] LABS: BILIRUBIN,TOTAL 9.6 mg/dL (0.2-1)
[2025-03-14] MEDS: NYSTATIN 500,000 UNITS/5 ML SUSPENSION PO SCH (17:02)
[2025-03-14] MEDS: HEPARIN NA (PORCINE) 5,000 UNITS/ML 1ML VIAL SQ SCH (21:42)
[2025-03-15 07:06] LABS: HEMATOCRIT 23.3 % (40.1-51.0); HEMOGLOBIN 7.4 g/dL (13.7-17.5); MCHC 31.8 g/dl (32.3-36.5)
[2025-03-15 07:09] LABS: MEAN PLT VOLUME 10.9 fl (9.4-12.4); PLATELET COUNT 115 x10^3/uL (163-337); RDW 17.9 % (12.2-16.1)
[2025-03-15 07:26] LABS: CHLORIDE 110 mmol/L (98-107); SODIUM 139 mmol/L (136-145)
[2025-03-15 07:28] LABS: ALBUMIN 1.4 g/dl (3.4-5.0); BLOOD UREA NITROGEN 34.7 mg/dL (7-18); CALCIUM 9.9 mg/dL (8.5-10.1); CO2 22 mmol/L (21-32); GLUCOSE,RANDOM 75 mg/dL (74-106); MAGNESIUM 1.7 mg/dL (1.8-2.4)
[2025-03-15 07:32] LABS: ANION GAP 7 mmol/L (4-13); BILIRUBIN,DIRECT 5.2 mg/dL (0.0-0.2); CREATININE 1.4 mg/dL (0.55-1.3); PHOSPHOROUS 2.7 mg/dL (2.5-4.9); POTASSIUM 2.9 mmol/L (3.5-5.1); SGOT/AST 73 U/L (15-37); SGPT/ALT 91 U/L (13-61)
[2025-03-15 07:33] LABS: TOT PROT 5.1 g/dl (6.4-8.2)
[2025-03-15 07:59] LABS: ALK PHOS 1880 U/L (45-117)
[2025-03-15] MEDS: MAGNESIUM SULFATE IN WATER 2 GM/50 ML IVPB IVPB ONE (10:00)
[2025-03-15] MEDS: KCL 10 MEQ IVPB 10 MEQ/100 ML INFUS.BAG IVPB SCH (10:58)
[2025-03-15] MEDS: POTASSIUM CHLORIDE ORAL LIQUID 20 MEQ/15 ML PO ONE (10:58)
[2025-03-15] MEDS: SODIUM CHLORIDE 0.45% 1,000 ML IV SCH (12:02)
[2025-03-15 13:55] LABS: IRON SERUM 60 ug/dL (50-175)
[2025-03-15 13:57] LABS: TOTAL IRON BINDING CAPACITY 98 ug/dL (250-450)
[2025-03-15 15:40] LABS: HEPATITIS B SURF AG NON-MATERN NON-REACTIVE (NONREACTIVE)
[2025-03-16 07:37] LABS: ABSOLUTE IMMATURE GRANULOCYTES 0.05 x10^3/uL (0.0-0.031); BASOPHILS # 0.01 x10^3/uL (0.01-0.08); HEMOGLOBIN 7.6 g/dL (13.7-17.5)
[2025-03-16 07:39] LABS: EOSINOPHIL % 4.8 % (0.8-7.0); EOSINOPHILS # 0.17 x10^3/uL (0.04-0.54); HEMATOCRIT 24.2 % (40.1-51.0); MCHC 31.4 g/dl (32.3-36.5); MEAN CELL VOLUME 85.5 fl (79.0-92.2); MEAN PLT VOLUME 12.4 fl (9.4-12.4); MONOCYTE % 5.6 % (5.3-12.2); PLATELET COUNT 126 x10^3/uL (163-337); RDW 17.4 % (12.2-16.1)
[2025-03-16 08:03] LABS: POTASSIUM 3.4 mmol/L (3.5-5.1)
[2025-03-16 08:15] LABS: ALBUMIN 1.6 g/dl (3.4-5.0); MAGNESIUM 2.1 mg/dL (1.8-2.4)
[2025-03-16 08:16] LABS: BLOOD UREA NITROGEN 35.8 mg/dL (7-18)
[2025-03-16 08:18] LABS: PHOSPHOROUS 2.7 mg/dL (2.5-4.9)
[2025-03-16 08:19] LABS: CREATININE 1.5 mg/dL (0.55-1.3)
[2025-03-16 08:20] LABS: BILIRUBIN,TOTAL 4.9 mg/dL (0.2-1); TOT PROT 5.7 g/dl (6.4-8.2)
[2025-03-16] MEDS: LABETALOL HCL 200 MG TABLET (FP) PO SCH (09:25)
[2025-03-16] MEDS: BICTEGRAV/EMTRICIT/TENOFOV (BIKTARVY) 50-200-25 MG TABLET PO SCH (12:24)
[2025-03-16] MEDS: KCL 10 MEQ IVPB 10 MEQ/100 ML INFUS.BAG IVPB SCH (12:34)
[2025-03-17 06:50] LABS: POTASSIUM 3.4 mmol/L (3.5-5.1)
[2025-03-17 06:52] LABS: ALBUMIN 1.6 g/dl (3.4-5.0); BLOOD UREA NITROGEN 30.5 mg/dL (7-18); CALCIUM 10.2 mg/dL (8.5-10.1)
[2025-03-17 06:53] LABS: MAGNESIUM 1.9 mg/dL (1.8-2.4)
[2025-03-17 06:56] LABS: CREATININE 1.4 mg/dL (0.55-1.3)
[2025-03-17 06:57] LABS: TOT PROT 5.8 g/dl (6.4-8.2)
[2025-03-17] MEDS: KCL 10 MEQ IVPB 10 MEQ/100 ML INFUS.BAG IVPB SCH (08:08)
[2025-03-17 08:18] LABS: RDW 17.6 % (12.2-16.1)
[2025-03-17 08:19] LABS: HEMATOCRIT 24.1 % (40.1-51.0); HEMOGLOBIN 7.7 g/dL (13.7-17.5); MEAN PLT VOLUME 10.8 fl (9.4-12.4); PLATELET COUNT 117 x10^3/uL (163-337)
[2025-03-17] MEDS: SULFAMETHOXAZOLE/TRIMETHOPRIM 800MG/160MG D.S. TABLET PO SCH (09:45)
[2025-03-17] MEDS ORDERED: LABETALOL HCL 200 MG TABLET (FP) PO SCH ×2 (12:31→12:45)
[2025-03-17 13:21] LABS: URIC ACID 3.8 mg/dL (2.6-7.2)
[2025-03-17] MEDS ORDERED: BENZOCAINE/MENTH/CETYLPYRD CL 1 EACH LOZENGE MM PRN (15:02)
[2025-03-17] MEDS: LABETALOL HCL 200 MG TABLET (FP) PO SCH (21:43)
[2025-03-18 01:06] LABS: PARATHYROID RELATED PROTEIN < 2.0 pmol/L (.)
[2025-03-18 06:50] LABS: POTASSIUM 3.2 mmol/L (3.5-5.1)
[2025-03-18 06:52] LABS: CALCIUM 10.3 mg/dL (8.5-10.1)
[2025-03-18 06:53] LABS: ALBUMIN 1.6 g/dl (3.4-5.0); BLOOD UREA NITROGEN 27.4 mg/dL (7-18); MAGNESIUM 1.8 mg/dL (1.8-2.4)
[2025-03-18 06:55] LABS: ABSOLUTE IMMATURE GRANULOCYTES 0.04 x10^3/uL (0.0-0.031); BASOPHILS # 0.01 x10^3/uL (0.01-0.08); EOSINOPHIL % 5.4 % (0.8-7.0); EOSINOPHILS # 0.15 x10^3/uL (0.04-0.54); HEMATOCRIT 23.9 % (40.1-51.0); HEMOGLOBIN 7.5 g/dL (13.7-17.5); MCHC 31.4 g/dl (32.3-36.5); MEAN CELL VOLUME 89.5 fl (79.0-92.2); MEAN PLT VOLUME 11.6 fl (9.4-12.4); MONOCYTE # 0.17 x10^3/uL (0.30-0.82); MONOCYTE % 6.2 % (5.3-12.2); PLATELET COUNT 129 x10^3/uL (163-337); RDW 17.7 % (12.2-16.1)
[2025-03-18 06:56] LABS: CREATININE 1.4 mg/dL (0.55-1.3)
[2025-03-18 06:57] LABS: BILIRUBIN,TOTAL 4.8 mg/dL (0.2-1)
[2025-03-18 06:58] LABS: TOT PROT 5.9 g/dl (6.4-8.2)
[2025-03-18] MEDS: KCL 10 MEQ IVPB 10 MEQ/100 ML INFUS.BAG IVPB SCH (09:05)
[2025-03-18] MEDS ORDERED: POLYETHYLENE GLYCOL (HEALTHYLAX) 3350 17 GM PACKET PO PRN (10:00)
[2025-03-18] MEDS: LABETALOL HCL 200 MG TABLET (FP) PO SCH (21:25)
[2025-03-19 06:51] LABS: CHLORIDE 107 mmol/L (98-107); POTASSIUM 3.3 mmol/L (3.5-5.1); SODIUM 140 mmol/L (136-145)
[2025-03-19 06:57] LABS: ALBUMIN 1.6 g/dl (3.4-5.0); ANION GAP 8 mmol/L (4-13); CALCIUM 9.9 mg/dL (8.5-10.1); CO2 25 mmol/L (21-32); GLUCOSE,RANDOM 72 mg/dL (74-106)
[2025-03-19 06:58] LABS: MAGNESIUM 1.7 mg/dL (1.8-2.4)
[2025-03-19 06:59] LABS: SGOT/AST 102 U/L (15-37); SGPT/ALT 90 U/L (13-61)
[2025-03-19 07:00] LABS: BILIRUBIN,TOTAL 5.4 mg/dL (0.2-1); CREATININE 1.5 mg/dL (0.55-1.3); HEMATOCRIT 23.1 % (40.1-51.0); PHOSPHOROUS 2.4 mg/dL (2.5-4.9)
[2025-03-19 07:02] LABS: HEMOGLOBIN 7.1 g/dL (13.7-17.5); MCHC 30.7 g/dl (32.3-36.5); MEAN CELL VOLUME 88.2 fl (79.0-92.2); PLATELET COUNT 134 x10^3/uL (163-337); RDW 17.8 % (12.2-16.1)
[2025-03-19 08:08] LABS: ALK PHOS 2167 U/L (45-117)
[2025-03-19] MEDS: POTASSIUM CHLORIDE ORAL LIQUID 20 MEQ/15 ML PO ONE (09:34)
[2025-03-19] MEDS: MULTIVITAMINS (DAILY MVI) TABLET (FP) PO SCH (09:36)
[2025-03-19] MEDS: MAGNESIUM 1GM/D5W 100ML - 100 ML IVPB IVPB ONE (09:36)
[2025-03-20 07:01] LABS: POTASSIUM 3.4 mmol/L (3.5-5.1)
[2025-03-20 07:09] LABS: ALBUMIN 1.5 g/dl (3.4-5.0); BLOOD UREA NITROGEN 23.4 mg/dL (7-18); CALCIUM 10.2 mg/dL (8.5-10.1)
[2025-03-20 07:10] LABS: MAGNESIUM 2.2 mg/dL (1.8-2.4)
[2025-03-20 07:13] LABS: CREATININE 1.3 mg/dL (0.55-1.3); PHOSPHOROUS 2.8 mg/dL (2.5-4.9)
[2025-03-20 07:14] LABS: BILIRUBIN,TOTAL 5.1 mg/dL (0.2-1)
[2025-03-20 07:20] LABS: HEMATOCRIT 23.4 % (40.1-51.0); HEMOGLOBIN 7.1 g/dL (13.7-17.5); MCHC 30.3 g/dl (32.3-36.5); MEAN CELL VOLUME 88.6 fl (79.0-92.2); MEAN PLT VOLUME 11.7 fl (9.4-12.4); PLATELET COUNT 131 x10^3/uL (163-337); RDW 17.6 % (12.2-16.1)
[2025-03-20] MEDS: KCL 10 MEQ IVPB 10 MEQ/100 ML INFUS.BAG IVPB SCH (09:10)
[2025-03-20] MEDS ORDERED: BISACODYL 5 MG TABLET.DR (FP) PO PRN (10:26)
[2025-03-20] MEDS: AMINO ACIDS/PROTEIN HYDROLYS 30 ML LIQUID.PKT PO SCH (14:22)
[2025-03-20 15:09] LABS: HEMOGLOBIN 7.2 g/dL (13.7-17.5); RDW 17.7 % (12.2-16.1)
[2025-03-20 15:11] LABS: HEMATOCRIT 22.8 % (40.1-51.0); MCHC 31.6 g/dl (32.3-36.5); MEAN CELL VOLUME 87.7 fl (79.0-92.2); MEAN PLT VOLUME 9.9 fl (9.4-12.4); PLATELET COUNT 135 x10^3/uL (163-337)
[2025-03-21 06:47] LABS: POTASSIUM 3.5 mmol/L (3.5-5.1)
[2025-03-21 06:52] LABS: BLOOD UREA NITROGEN 23.5 mg/dL (7-18)
[2025-03-21 06:53] LABS: ALBUMIN 1.5 g/dl (3.4-5.0); CALCIUM 9.9 mg/dL (8.5-10.1)
[2025-03-21 06:56] LABS: CREATININE 1.4 mg/dL (0.55-1.3); PHOSPHOROUS 2.6 mg/dL (2.5-4.9)
[2025-03-21 06:57] LABS: BILIRUBIN,TOTAL 4.9 mg/dL (0.2-1); TOT PROT 6.2 g/dl (6.4-8.2)
[2025-03-21 07:00] LABS: HEMATOCRIT 23.5 % (40.1-51.0); HEMOGLOBIN 7.3 g/dL (13.7-17.5); MCHC 31.1 g/dl (32.3-36.5); PLATELET COUNT 163 x10^3/uL (163-337); RDW 17.7 % (12.2-16.1)
[2025-03-22 06:21] LABS: INR 1.16 (0.83-1.09); PROTHROMBIN TIME (PATIENT) 12.6 SEC (9.7-13.0)
[2025-03-22 06:30] LABS: POTASSIUM 3.5 mmol/L (3.5-5.1)
[2025-03-22 06:36] LABS: CALCIUM 9.8 mg/dL (8.5-10.1); HEMATOCRIT 22.5 % (40.1-51.0); HEMOGLOBIN 7.1 g/dL (13.7-17.5); MCHC 31.6 g/dl (32.3-36.5); MEAN CELL VOLUME 88.6 fl (79.0-92.2); MEAN PLT VOLUME 11.1 fl (9.4-12.4); PLATELET COUNT 164 x10^3/uL (163-337); RDW 18.1 % (12.2-16.1)
[2025-03-22 06:37] LABS: ALBUMIN 1.5 g/dl (3.4-5.0); MAGNESIUM 2.1 mg/dL (1.8-2.4)
[2025-03-22 06:40] LABS: BILIRUBIN,TOTAL 4.5 mg/dL (0.2-1); CREATININE 1.4 mg/dL (0.55-1.3); TOT PROT 6.1 g/dl (6.4-8.2)
[2025-03-22 06:41] LABS: PHOSPHOROUS 2.6 mg/dL (2.5-4.9)
[2025-03-22] MEDS: LACTATED RINGERS SOLUTION 1,000 ML/1,000 ML INFUS.BAG IV SCH (08:30)
[2025-03-23 07:35] VITALS: BP 132/85; PULSE 82; RESP 18; TEMP 97.6
== END 2025-03-22 20:50 | disposition short-term general hospital (02) | DRG 974 ==
LOC: FER 07:41 → FM/S 12:13 → JICU 03-03 09:51 → J2W 03-10 18:07
PROVIDERS: ATTEND Internal Medicine
PROC: 5A1945Z Respiratory Ventilation, 24-96 Consecutive Hours (ICD-10-PCS; principal; 2025-03-03)
PROC: 0BH17EZ Insertion of Endotracheal Airway into Trachea, Via Natural or Artificial Opening (ICD-10-PCS; 2025-03-03)
PROC: 4A133B1 Monitoring of Arterial Pressure, Peripheral, Percutaneous Approach (ICD-10-PCS; 2025-03-03)
PROC: 4A133J1 Monitoring of Arterial Pulse, Peripheral, Percutaneous Approach (ICD-10-PCS; 2025-03-03)
PROC: 0F798ZZ Dilation of Common Bile Duct, Via Natural or Artificial Opening Endoscopic (ICD-10-PCS; 2025-03-08)
PROC: BF10YZZ Fluoroscopy of Bile Ducts using Other Contrast (ICD-10-PCS; 2025-03-08)
PROC: 30233N1 Transfusion of Nonautologous Red Blood Cells into Peripheral Vein, Percutaneous Approach (ICD-10-PCS; 2025-03-12)
DX: B20 Human immunodeficiency virus [HIV] disease (principal); E43 Unspecified severe protein-calorie malnutrition; A41.9 Sepsis, unspecified organism; J96.01 Acute respiratory failure with hypoxia; K83.1 Obstruction of bile duct; I16.1 Hypertensive emergency; N17.9 Acute kidney failure, unspecified; E87.0 Hyperosmolality and hypernatremia; Z68.1 Body mass index [BMI] 19.9 or less, adult; L02.91 Cutaneous abscess, unspecified; R18.8 Other ascites; R47.01 Aphasia; D61.818 Other pancytopenia; R64 Cachexia; K83.09 Other cholangitis; J90 Pleural effusion, not elsewhere classified; C24.9 Malignant neoplasm of biliary tract, unspecified; J98.11 Atelectasis; G93.41 Metabolic encephalopathy; E88.A Wasting disease (syndrome) due to underlying condition; R62.7 Adult failure to thrive; F17.200 Nicotine dependence, unspecified, uncomplicated; R94.5 Abnormal results of liver function studies; I10 Essential (primary) hypertension; G40.409 Other generalized epilepsy and epileptic syndromes, not intractable, without status epilepticus; I71.21 Aneurysm of the ascending aorta, without rupture; D69.6 Thrombocytopenia, unspecified; D64.9 Anemia, unspecified; R74.01 Elevation of levels of liver transaminase levels; R74.8 Abnormal levels of other serum enzymes; E55.9 Vitamin D deficiency, unspecified; I16.0 Hypertensive urgency; L89.152 Pressure ulcer of sacral region, stage 2; E83.52 Hypercalcemia; R63.0 Anorexia; E83.42 Hypomagnesemia; E87.6 Hypokalemia
CPT/HCPCS: 31500; 36415; 36430; 36600; 70450-TC; 70460-TC; 70546-TC; 70553-TC; 71045-TC-FY; 71046-TC-FY; 71250-TC; 71260-TC; 74018-TC-FY; 74176-TC; 74178-TC; 74183-TC; 76000-TC-FY; 76705-TC; 80048; 80053; 80061; 80076; 80307; 81003; 81015; 82105; 82140; 82150; 82248; 82306; 82310; 82378; 82397; 82550; 82607; 82728; 82803; 82962; 83516; 83520; 83540; 83550; 83605; 83615; 83690; 83735; 83970; 84080; 84100; 84132; 84153; 84155; 84165; 84425; 84436; 84443; 84479; 84481; 84484; 84550; 84702; 85025; 85027; 85384; 85610; 85651; 85730; 86038; 86140; 86225; 86256; 86301; 86359; 86360; 86480; 86705; 86708; 86747; 86780; 86803; 86850; 86900; 86901; 86922; 87040; 87070; 87086; 87116; 87205; 87340; 87389; 87517; 87522; 87536; 87635; 87798; 87899; 88104; 88108; 88300-TC; 88305-TC; 93005; 93010; 93306-TC; 94002; 94760; 97116-GP; 97161-GP; 99285-25; C1726; C2617; C2625; P9058; Q9967